=== PATIENT | male | born 1945 | race Caucasian/White ===

== ENCOUNTER → 2019-10-05 11:48 | Outpatient (CLI) | payer MEDICARE, OTHER, SELFPAY ==
--- NOTE | 2019-10-05 | DI.US.S_ITS ---
PROCEDURE: US ABD AORTA ANEURYSM SCREEN INDICATIONS: SCREENING TECHNIQUE: Real time scanning was performed of the aorta and iliac arteries, with image documentation. COMPARISON: None. FINDINGS: Aorta: Proximal aortic was obscured by bowel gas. Mid-aorta measures 1.9 cm. Distal aortic diameter is 1.8 cm. Iliac arteries: Right common iliac artery measures 1.0 cm. Left common iliac artery measures 1.1 cm. IMPRESSION: No evidence of abdominal aortic aneurysm. Dictated by: Ty Wiseman M.D. on 10/06/2019 at 8:43 Approved by: Ty Wiseman M.D. on 10/06/2019 at 8:48
== END ==
PROVIDERS: Family Provider Family Medicine; PCP Family Medicine; Visit Provider Nurse Practitioner Family
DX: Z13.6 Encounter for screening for cardiovascular disorders (principal)
CPT/HCPCS: 76706

== ENCOUNTER → 2024-03-06 13:40 | Outpatient (CLI) | payer MEDICARE, OTHER, SELFPAY ==
[2024-03-06 14:52] LABS: Add Manual Diff / Slide Review NO; Basophils Absolute Auto 100 /uL (0-100); Basophils Percent Auto 1.2 % (0-2); Eosinophils Absolute Auto 300 /uL (0-450); Eosinophils Percent Auto 2.9 % (2-4); Hematocrit 39.6 % (41-53); Hemoglobin 13.3 g/dL (13.5-17.5); Lymphocytes Absolute Auto 2000 /uL (1100-4500); Lymphocytes Percent Auto 20.1 % (25-40); Mean Corpuscular HGB Conc 33.5 % (30-36); Mean Corpuscular Volume 95.3 fL (80-100); Monocytes Absolute Auto 1000 /uL (0-900); Monocytes Percent Auto 9.4 % (3-14); Neutrophils Absolute Auto 6700 /uL (1500-7000); Neutrophils Percent Auto 66.4 % (50-75); Platelet Count 211 X10^3/uL (150-400); Red Blood Cell Count 4.15 X10^6/uL (4.5-5.9); Red Cell Distribution Width 15.8 % (11.6-14.8); White Blood Cell Count 10.1 X10^3/uL (4.5-11.0)
[2024-03-06 15:18] LABS: Erythrocyte Sedimentation Rate 44 MM/HR (0-15)
[2024-03-06 15:27] LABS: Alanine Aminotransferase 15 IU/L (<50); Albumin 3.8 g/dL (3.5-5.0); Albumin Globulin Ratio 1.4 (1.0-2.8); Alkaline Phosphatase 126 U/L (38-126); Aspartate Aminotransferase 19 IU/L (17-59); Bilirubin Total 0.4 mg/dL (0.2-1.3); Blood Urea Nitrogen 25 mg/dL (9-20); Calcium 9.7 mg/dL (8.4-10.2); Carbon Dioxide 27 mmol/L (22-32); Chloride 103 mmol/L (98-107); Estimated Glomerular Filt Rate > 60 mL/min (>60); Globulin 2.8 g/dL (1.7-4.1); Glucose 159 mg/dL (80-110); HEMOLYSIS < 15 (0-50); Potassium 5.3 mmol/L (3.4-5.1); Sodium 137 mmol/L (137-145); Total Protein 6.6 g/dL (6.3-8.2); Uric Acid 3.7 mg/dL (3.5-8.5)
== END ==
LOC: LAB 13:43
PROVIDERS: Family Provider Family Medicine; PCP Family Medicine; Referring Provider Orthopaedic Surgery Adult Reconstructive Orthopaedic Surgery; Visit Provider Orthopaedic Surgery Adult Reconstructive Orthopaedic Surgery
DX: M1A.9XX1 Chronic gout, unspecified, with tophus (tophi) (principal); R70.0 Elevated erythrocyte sedimentation rate; R79.82 Elevated C-reactive protein (CRP)
CPT/HCPCS: 36415; 80053; 82495; 83018; 84550; 85025; 85651; 86140

== ENCOUNTER → 2024-03-23 09:04 | Outpatient (CLI) | payer MEDICARE, OTHER, SELFPAY ==
[2024-03-23 10:17] LABS: Add Manual Diff / Slide Review NO; Basophils Absolute Auto 100 /uL (0-100); Basophils Percent Auto 1.1 % (0-2); Eosinophils Absolute Auto 300 /uL (0-450); Eosinophils Percent Auto 3.8 % (2-4); Hematocrit 41.9 % (41-53); Hemoglobin 13.7 g/dL (13.5-17.5); Lymphocytes Absolute Auto 1200 /uL (1100-4500); Lymphocytes Percent Auto 14.6 % (25-40); Mean Corpuscular HGB Conc 32.8 % (30-36); Mean Corpuscular Hemoglobin 31.2 PG (26-34); Mean Corpuscular Volume 95.2 fL (80-100); Monocytes Absolute Auto 600 /uL (0-900); Monocytes Percent Auto 7.6 % (3-14); Neutrophils Absolute Auto 5900 /uL (1500-7000); Neutrophils Percent Auto 72.9 % (50-75); Platelet Count 191 X10^3/uL (150-400); White Blood Cell Count 8.1 X10^3/uL (4.5-11.0)
[2024-03-23 10:31] LABS: Hemoglobin A1C% w Est Avg Glu 8.1 % (4.0-6.0)
[2024-03-23 10:38] LABS: Albumin 4.3 g/dL (3.5-5.0); Calcium 9.9 mg/dL (8.4-10.2); Carbon Dioxide 24 mmol/L (22-32); Chloride 103 mmol/L (98-107); Estimated Glomerular Filt Rate > 60 mL/min (>60); Glucose 169 mg/dL (80-110); HEMOLYSIS < 15 (0-50); Potassium 4.7 mmol/L (3.4-5.1); Sodium 135 mmol/L (137-145)
[2024-03-23 10:41] LABS: BUN Creatinine Ratio 32.6 (6-22); Blood Urea Nitrogen 29 mg/dL (9-20)
[2024-03-23 10:46] LABS: Prealbumin 22.9 mg/dL (17.6-36.0)
[2024-03-23 10:54] LABS: Vitamin D 25 Hydroxy (D3) 49.3 ng/mL (30.0-100.0)
== END ==
LOC: LAB 09:05
PROVIDERS: Family Provider Internal Medicine; PCP Internal Medicine; Referring Provider Orthopaedic Surgery Adult Reconstructive Orthopaedic Surgery; Visit Provider Orthopaedic Surgery Adult Reconstructive Orthopaedic Surgery
DX: Z01.818 Encounter for other preprocedural examination (principal); R73.9 Hyperglycemia, unspecified; E55.9 Vitamin D deficiency, unspecified; Z01.812 Encounter for preprocedural laboratory examination; R77.0 Abnormality of albumin
CPT/HCPCS: 36415; 80048; 82040; 82306; 83036; 84134; 85025; 93005

== ENCOUNTER → 2024-04-06 13:15 | Outpatient (CLI) | payer MEDICARE, OTHER, SELFPAY ==
--- NOTE | 2024-04-06 | DI.RAD.S_ITS ---
PROCEDURE: XR CHEST 2V INDICATIONS: Encounter for other preprocedural examination TECHNIQUE: 2 views of the chest were acquired. COMPARISON: None. FINDINGS: Surgical changes and devices: None. Lungs and pleura: Lungs are clear. No pleural effusions or pneumothorax. Prominent left nipple shadow. Mediastinum: Mediastinal contours are normal. Heart size is normal. Bones and chest wall: No suspicious bony abnormalities. Soft tissues appear unremarkable. Multilevel degenerative disc disease, with opposing endplate sclerosis of the mid to lower thoracic spine. IMPRESSION: No acute cardiopulmonary abnormality is seen. Dictated by: Levy Carolina M.D. on 04/06/2024 at 15:20 Approved by: Levy Carolina M.D. on 04/06/2024 at 15:21
--- NOTE | 2024-04-06 | DI.RAD.S_ITS ---
PROCEDURE: XR DEXA AXIAL SKELETON INDICATIONS: BONE QUALITY TO PREPARE FOR SURGERY COMPARISON: None. FINDINGS: Lumbar Spine: Bone mineral density 1.439 g/cm2, T score 3.9. Right Hip: Bone mineral density 1.041 g/cm2, T score 0.8. Right Femoral Neck: Bone mineral density 0.901 g/cm2, T score 0.5. Fracture Risk Calculation (when applicable): FRAX not provided due to bone mineral density within normal limits. (T score greater or equal to -1.0 to: NORMAL) (T score from -1.1 to -2.4: OSTEOPENIA) (T score less than or equal to -2.5: OSTEOPOROSIS) IMPRESSION: Bone mineral density is within normal limits. Follow-up guidelines as follows: Osteoporosis: Consider a repeat DEXA and Vertebral Fracture Assessment (VFA) exam in 2 years or sooner if medically necessary, to reassess this patient's status. Osteopenia: Consider a repeat DEXA in 2-3 years to reassess this patient's status, or if there is a new clinical indication. Normal: Consider a repeat DEXA in 5 years or sooner, or if there is a new clinical indication. Dictated by: Jaspal Hwang M.D. on 04/06/2024 at 15:22 Approved by: Jaspal Hwang M.D. on 04/06/2024 at 15:24
== END ==
PROVIDERS: Family Provider Internal Medicine; PCP Internal Medicine; Referring Provider Orthopaedic Surgery Adult Reconstructive Orthopaedic Surgery; Visit Provider Orthopaedic Surgery Adult Reconstructive Orthopaedic Surgery
DX: Z01.818 Encounter for other preprocedural examination (principal); Z01.810 Encounter for preprocedural cardiovascular examination; M51.34 Other intervertebral disc degeneration, thoracic region; M81.0 Age-related osteoporosis without current pathological fracture
CPT/HCPCS: 71046; 77080

== ENCOUNTER 2024-06-09 06:16 | Day surgery (SDC) | payer MEDICARE, OTHER, SELFPAY ==
[2024-05-31 12:34] VITALS: BMI 40.7
[2024-06-09] VITALS (13 sets, daily range): BP systolic 96–138; BP diastolic 57–84; PULSE 66–90; RESP 12–18; TEMP 36.1–36.8; O2SAT 95–99; BMI 40.7; BMI 44.1
--- NOTE | 2024-06-09 06:00 | DI.RAD.S_ITS ---
PROCEDURE: XR HIP W PEL IF DONE RT 2V INDICATIONS: SHELBY inner op shot TECHNIQUE: AP pelvis with lateral view(s) of the right hip(s). COMPARISON: [facility], CR, XR PELVIS 1 OR 2 VIEWS, 06/05/2024, 11:13. [facility], CR, XR HIP W PEL IF DONE RT 2V, 06/09/2024, 10:39. FINDINGS: Intraoperative images demonstrate bilateral hip arthroplasties. Right hip arthroplasty is new. Good anatomic alignment. Visualized portions of the hardware appear intact. IMPRESSION: Intraoperative placement of new right hip arthroplasty. Prior left hip arthroplasty is noted. Dictated by: Lucia Cartagena M.D. on 06/09/2024 at 12:23 Approved by: Lucia Cartagena M.D. on 06/09/2024 at 12:24
[2024-06-09] MEDS: ACETAMINOPHEN 325 MG TABLET 975 MG PO (07:05)
[2024-06-09] MEDS: MELOXICAM 7.5 MG TABLET 15 MG PO (07:06)
[2024-06-09] MEDS: LACTATED RINGERS 1,000 ML 42 ML IV ×2 (07:07→09:12)
--- NOTE | 2024-06-09 07:41 | PM.PREOP ---
Pre-operative Note Interval Note History & Physical reviewed/Exam performed by Physician: Yes Changes to H&P: No
[2024-06-09] MEDS: CEFAZOLIN 2 GM/100 ML PREMIX 100 ML IV (07:56)
[2024-06-09] MEDS: TRANEXAMIC ACID 1,000 MG VIAL 1000 MG INJ ×2 (08:03→10:10)
--- NOTE | 2024-06-09 08:24 | SUR.OPER ---
Patient supine on padded [place] table, both arms on padded arm board at <90, both legs secured in padded traction boots and positioned per surgeon, left leg stabilized with padded knee grimes, padded post at patient's groin, pressure points checked and padded.
[2024-06-09] MEDS: ROPIVACAINE/EPI/CLONIDINE/KET 50 ML SYRINGE INJ (08:30)
--- NOTE | 2024-06-09 10:29 | P.OP_ITS ---
Operative Date/Time/Diagnoses Date of procedure: 06/09/24 Pre-op diagnosis: Right hip osteoarthritis Post-op diagnosis: same Procedure & Clinicians Procedure: Right total hip arthroplasty (46328) Same procedure as scheduled: Yes Surgeon: Pop Anderson Mint Machine Operator: Jaky Chaudhry Anesthesia Type: General and Local Operative Notes Estimated Blood Loss (mL): 450 Procedure in detail: Right Uncemented Direct Anterior Depuy Total Hip Arthroplasty: Implants: * [place] Gription size 54 cup? * Actis femoral stem size 8 high offset? * 36 mm +5 ceramic femoral head? Procedure Summary: This 78-year-old male presented to my clinic with multiple arthroplasty related concerns. 1) He had the arthritic right hip which I replaced today. 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 Due to concerns for possible infection in the joint I aspirated it and sent it for Synovasure which was negative. 3) He has a modular neck left total hip, and I obtained metal ion levels which were elevated. We discussed this in detail and he was less symptomatic there than he was on either his right hip or his right knee and we are therefore going to continue monitoring that with serial laboratory panels. From a medical perspective there were multiple medical considerations 1) The most noteworthy concern was his history of a pulmonary embolism. He is maintained on Pradaxa and had a Lovenox bridge prior to surgery today. General anesthesia was utilized rather than spinal anesthesia because of his bleeding risk. We will use Pradaxa postoperatively. 2) He is diabetic. A hemoglobin A1c was checked which was less than 7.5%, we will maintain him on sliding scale insulin while he is in the hospital. 3) He has a BMI of 40. He had a large overlying pannus which was taped out of the way during the surgery today. I made a slightly more distal incision to avoid crossing his groin crease. Because of his BMI and the plan for systemic anticoagulation postoperatively we used a cristina incisional wound VAC 4) After my initial visit with him, after I had booked him for surgery, he was started on oral morphine by an outside provider. I was unaware of this until my preoperative visit with him few days before surgery. I did not cancel the surgery solely because of the opiates but did career counselor him regarding the li kelihood of elevated pain postoperatively and will continue him on his baseline dosage through the perioperative 7 days with the intention of aggressively weaning him off of them As it relates to intraoperative findings during today's procedure, he has the prior left total hip which was slightly long relative to the operative side. I had initially templated for smaller components then were eventually used but noted during the removal of the femoral head that the femoral head was only 2 mm smaller than my templated cup, which therefore lead to me to believe that the magnification on the preoperative templating radiograph was undersized. I initially trialed with a 7 standard and +1.5 head and had instability with this. I therefore upsized to a 7 high with a +5 head. This was more stable but required more internal rotation than is typical for me to be able to reduce it. I thought that this could be an indication of relative stem retroversion. During the initial performance of his neck cut he had a large osteophyte which had obscured the junction between his femoral neck in his greater trochanter and I had made what would later turned out to be a relatively high neck cut on the lateral side. Given my presumption that I had slightly retroverted his stem based on the excessive internal rotation necessary to reduce his hip I therefore removed some lateral bone to allow a more anteverted position and upsized to a size 8 stem. When I trialed following this up sizing I found more appropriate parameters. It was slightly long relative to the contralateral side however this was not a dramatic amount when measuring with a long metal bar across the transitional line, the other side had previously been replaced, and the hip would dislocate when I used a +1.5 head. I therefore implanted those final components Procedure in Detail: This patient was seen preoperatively and evaluated for hip pain which was refractory to numerous nonoperative treatment modalities. Their hip pain correlated with radiographic changes demonstrating significant degeneration in the hip joint. The risks and benefits of continued nonoperative management versus operative management were discussed at length and all of the patient?s questions were answered. Additional educational materials providing further details beyond our discussion in clinic were provided via a publicly available patient education video which included the incidence of medical complications associated with total hip arthroplasty, reasons for revision following total hip arthroplasty, and patient satisfaction rates following total hip arthroplasty. That video can be accessed at [email or web address] . With this understanding of the risks inherent to the procedure, the patient elected to move forward with operative management. Following preoperative optimization, the patient was scheduled for surgery. The patient was met in the preoperative holding area the day of the procedure and all questions were answered. The patient?s nares were swabbed with betadine in order to decolonize them from MRSA. Informed consent was signed and the right limb was marked with indelible ink.? The patient was brought back to the operating room where anesthesia was induced. The patient was transferred to the [place] table and all bony prominences were padded. The operative site was prepped and draped in the usual sterile fashion. Prior to incision, tranexamic acid and cefazolin were administered. Operative te mplating images were displayed demonstrating the anticipated implant sizes and correct operative extremity. A timeout procedure was performed verifying the patient?s identity, medical comorbidities, allergies, relevant medications, anesthesia type and the surgical plan. All present were in agreement. The assistance of a physician events administrative assistant was required for positioning, room setup, soft tissue retraction and wound closure. Without this assistance, the procedure would have been significantly more challenging and time consuming.?? A direct anterior approach to the hip was utilized. This was performed with a longitudinal incision through a Heuter interval. The incision was planned 2 cm distal and 2 cm lateral to the ASIS extending towards the lateral patella, in line with the muscle body of the TFL. Following incision, the subcutaneous tissue was dissected while taking care to avoid injury to the lateral femoral cutaneous nerve. The fascia overlying the TFL was identified by dissecting off the overlying fat and identifying perforating vessels to the TFL. The TFL fascia was incised and dissected away from the medial border of the TFL. A cobra retractor was placed over the superior femoral neck between the abductors and the hip capsule and used to reflect the TFL laterally. A Winn self-retainer was then placed in the distal aspect of the wound between the TFL and the rectus femoris. This was tensioned to open up the direct anterior interval and the lateral circumflex vessels were identified and coagulated using electrocautery. The floor of the TFL fascia was incised, exposing the pericapsular fat overlying the hip capsule. A second cobra retractor was placed on the inferior femoral neck. A double-bent soft tissue retractor was placed on the anterior wall of the acetabulum and used to tension the reflected head of rectus femoris, which was then released in order to limit soft tissue tension. A capsulotomy was made in the midline of the anterior hip capsule in line with the femoral neck ending at the vastus tubercle. The double-bent retractor was removed in order to limit the amount of time that a soft tissue retractor remained on the anterior wall and protect the femoral nerve. Tag stitches were placed in the superior and inferior leaflets of the hip capsule. An Bernard soft tissue retractor was introduced over the tag stitches and tensioned in the interval between the rectus femoris and the TFL in order to retract and protect those muscles. The cobra retractors were replaced intracapsularly, with one over the superior neck in the pocket created by the base of the greater trochanter and the other on the femoral head. The capsulotomy was extended laterally to the base of the greater trochanter and medially to the lesser trochanter. This required externally rotating the hip. Once the lesser trochanter had been identified, a neck cut was planned according to measurements from preoperative templating. A ruler was cut at the length measured between the superior aspect of the lesser trochanter and the collar of the prosthesis. This line was extended towards the inferior aspect of the lateral cobra retractor to plan a cut which would leave minimal residual femoral neck laterally. The neck was cut at 60 degrees of external rotation along that line. A second cut was performed to remove a large napkin ring and facilitate head extraction. The napkin ring cut and femoral head were removed.?? A broad anterior wall retractor was placed between the labrum and the anterior capsule so that the anterior capsule would prevent capturing and pinching the f emoral nerve anteriorly. An additional retractor was placed on the posterior wall. External rotation and traction were applied through the [place] table so that the cut surface of the femoral neck would not restrict access to the acetabulum. The labrum was excised sharply and the pulvinar was excised with electrocautery to limit bleeding from branches of the obturator artery. Acetabular reamers were selected based on preoperative templating and measurements of the excised femoral head. These were introduced into the acetabulum. Fluoroscopy was utilized to replicate a standing AP pelvis radiograph by centering over the pelvis, rotating until there was appropriate symmetry between the obturator foramen, and introducing caudal tilt to match the position of the pubic symphysis relative to the sacrococcygeal junction according to the patient?s anatomy. Fluoroscopy was utilized to ensure appropriate reaming depth. Once satisfied with the reaming depth corresponding to the preoperative template and the pinch fit between the columns, an appropriate sized acetabular cup was selected which would provide 1 mm of press-fit. This cup was introduced and manipulated until appropriate abduction and anteversion angles were obtained with careful attention to appropriate abduction and anteversion angles as evaluated by the position of the cup relative to the anterior and posterior leiva of the acetabulum and the AP fluoroscopy which recreated the patient?s standing radiograph. The cup was impacted into place. Peripheral osteophytes were removed. The acetabular liner was then placed with care to ensure locking of the locking mechanism.? Attention was then turned to the femur. All retractors were removed, traction was released, a retractor was placed in the interval between the hip capsule and the gluteus minimus, and the hip was externally rotated to 90 degrees. Traction was applied through the [place] table to tension the lateral capsule and this was released using electrocautery. Traction was released and a [place] hook was placed posteriorly around the proximal femur at the level of the vastus ridge. The table height was lowered in order to restrict the tension on the anterior structures during hip hyperextension to limit the risk of femoral nerve palsy. With traction off and the hip at 90 degrees of external rotation, the hip was hyperextended and adducted while manually elevating the femur away from the acetabulum with the [place] hook to ensure it would not be caught behind the greater trochanter. An asymmetric retractor was placed over the calcar and a broad double-pronged retractor was placed over the greater trochanter. The tag stitch capturing the lateral leaflet of the capsule was moved to the medial side, leaving the conjoined and piriformis tendons isolated in the face of the greater trochanter. The hip was externally rotated and elevated. A release of the conjoined tendon was not necessary in order to obtain adequate exposure for broaching. The canal was opened with an opening broach and a rasp was used to remove cancellous bone. A rongeur was used to remove the residual lateral bone at the base of the greater trochanter to avoid placing the stem in varus. The femur was then broached to the appropriate sized stem yielding good rotational fit and fill of the canal as well as appropriate version of the stem trial. Neck and head trials were placed, all retractors were removed and the hip was returned to neutral abduction and extension. I then reduced the hip. Initial trialing was performed with a size 7 broach, a standard offset neck and a +1.5 head. I initially manually externally rotated the hip and found instability. I therefore transitioned to a high offset neck and a +5 head after returning to the broaching position temporarily. I returned to neutral hip extension and reduced the hip. I manually externally rotated it and found that it would not dislocate with 120? of external rotation although I did note that excessive internal rotation was required to achieve the reduction. I then locked the hip in 45 degrees of external rotation and dropped it to the floor with traction off which demonstrated no instability. An AP pelvis fluoroscopic image matching the preoperative standing radiograph with both lesser trochanters visible and both hips in 40 degrees of external rotation demonstrated grossly appropriate leg length and increased offset compared to the other side. AP and lateral hip fluoroscopic images were obtained to evaluate the broach size which demonstrated that the stem appeared to be appropriately sized. The hip was dislocated and I returned to the broaching position. Based on my evaluation during initial trialing I planned to try to upsize to a size 8 stem. I felt that it was likely with my long neck cut I had performed earlier on the lateral side I had some residual bone at the base of the neck with the junction with the greater trochanter which was forcing my stem into retroversion. I therefore removed the broach and rongeur away the bone to attempt to allow myself to upsized to a size 8 broach. The size 7 stem had good rotational stability in the position that I had trialed it in and appeared to have good fill radiographically so I used a size 5 broach temporarily as a rasp to remove some lateral bone to allow the size 8 broach to get down to the point at which I had previously calcar planed with the size 7 broach. I was eventually able to broach down to the same point that the size 7 broach had rested at with the size 8 broach. I placed the high offset neck and a +1.5 head and trialed and noted instability with external rotation so I upsized to a size 5 head. This resolved the instability. The operative side was slightly long and had slightly increased offset relative to the contralateral side however that side had been previously replaced and therefore may not necessarily be a reflexion of his [place] anatomy. I could not make the hip any shorter because it had instability with a +1.5 head. I therefore returned to the broaching position. The definitive stem was placed and the trunnion was cleaned and dried. I placed a ceramic head onto the trunnion and impacted it into place on the Bojorquez taper.?? All retractors were removed and the hip was reduced. A dilute mixture of betadine and peroxide was used to bathe the soft tissues during final fluoroscopic assessment. Appropriate component positioning was confirmed on an AP pelvis radiograph with the operative and nonoperative legs in 40 degrees of external rotation, evaluating leg length and offset. Appropriate stem fill was evaluated on AP and lateral hip radiographs. No fractures were identified on these radiographs. There was no hip instability with 120? external rotation as well as a 45 degree drop test. The hip was copiously irrigated with pulse lavage. The capsule was closed with absorbable interrupted suture. The TFL fascia was closed with barbed suture while carefully protecting the lateral femoral cutaneous nerve from entrapment. A mixture of Ropivacaine, Epinephrine, Clonidine and Toradol was infiltrated throughout the soft tissues. The skin was closed with 2-0 and 3-0 sutures. Surgical glue was applied and a soft dressing was placed.??The sponge, instrument and needle counts were reported as being correct at the end of the case.??No obvious complications occurred. The patient was transferred from the [place] table back to a stretcher. The patient emerged from anesthesia without difficulty and was taken to the PACU in a stable condition.? Plan for aftercare: * Anterior hip precautions * Weightbearing as tolerated * Pradaxa for DVT prophylaxis to be restarted tomorrow morning at 24 hours postop * Sliding scale insulin while in the hospital * CBC to be checked in the morning * Baseline opiate dosages. We will attempt to aggressively taper him down postoperatively * Anticipate discharge home tomorrow * Change into normal clothes upon arrival on the hospital floor * Mobilize in the halls as much as is logistically possible. If physical therapy is unavailable for mobilization, then patient should mobilize with nursing staff * Multimodal pain regimen with no IV opioids ordered * Apply ice machine to operative hip. Ensure that sufficient ice is in the chamber for the pad to remain cold * Follow up at [facility] in 2 weeks * Detailed postoperative instructions available at [email or web address]
--- NOTE | 2024-06-09 10:37 | DI.RAD.S_ITS ---
PROCEDURE: XR HIP W PEL IF DONE RT 2V INDICATIONS: Right hip replacement TECHNIQUE: 2 view(s) of the hip acquired. COMPARISON: [facility], CR, XR PELVIS 1 OR 2 VIEWS, 06/05/2024, 11:13. [facility], CR, XR HIP W PEL IF DONE RT 2V, 06/09/2024, 8:57. FINDINGS: Bones: Patient is status post right hip arthroplasty, with hardware components in expected positions. The hip joint appears congruent. The visualized bony structures appear intact. Soft tissues: Overlying postoperative changes are noted. No suspicious soft tissue densities. IMPRESSION: Expected post-operative appearance of a hip arthroplasty. Dictated by: Alexandrea Reyes M.D. on 06/09/2024 at 12:03 Approved by: Alexandrea Reyes M.D. on 06/09/2024 at 12:04
[2024-06-09] MEDS: MORPHINE 10 MG/ML INJ IV ×5 (10:40→11:01)
[2024-06-09] MEDS: OXYCODONE IR 5 MG TABLET PO ×2 (10:56→11:26)
[2024-06-09] MEDS: HYDROMORPHONE 1 MG INJ IV (11:13)
[2024-06-09] MEDS: hydrOXYzine 50 MG/ML INJ 25 MG IM (11:24)
[2024-06-09] MEDS: IBUPROFEN 600 MG TABLET PO ×3 (12:14→23:17)
[2024-06-09] MEDS: LACTATED RINGERS 1,000 ML 100 ML IV ×2 (12:14→22:39)
[2024-06-09] MEDS: INSULIN LISPRO 100 UNIT/ML 3ML VIAL SUBCUT ×3 (12:22→21:01)
[2024-06-09 15:01] LABS: MRSA (Nasal) PCR NOT DETECTED (Not Detect)
[2024-06-09] MEDS: PREGABALIN 75 MG CAPSULE 150 MG PO ×2 (15:19→20:39)
[2024-06-09] MEDS: MORPHINE IR 15 MG TABLET PO ×2 (15:19→20:40)
[2024-06-09] MEDS: CEFAZOLIN VIAL 3 GM in SODIUM CHLORIDE 0.9% 100 ML IV ×2 (15:54→23:37)
--- NOTE | 2024-06-09 16:30 | PT.IIE ---
Current Diagnoses Unilateral primary osteoarthritis, right hip (06/09/24) Surgery Performed Operation Date: 06/09/24 07:45 Actual Procedures p Total Hip Arthroplasty/Anterior Approach(Right) - Pop Anderson MD Surgical History (Last Updated 05/31/24 @ 13:20 by Gabbie Wylie, RN) History of hip replacement History of knee replacement History of knee replacement History of left ankle joint replacement History of right ankle joint replacement History of vasectomy Hx of bilateral cataract extraction Medical History (Last Updated 05/31/24 @ 13:25 by Gabbie Wylie RN) Acute cor pulmonale (11/2023) Easy bruisability Gout Hearing deficit Neuropathy AYO on CPAP Osteoarthritis Pulmonary embolism (11/2023) Physical Therapy Inpatient Evaluation/Re-Eval M1 PT/OT-IP Prior Functional Status Start: 06/09/24 18:12 Freq: NEEDED Status: Active Protocol: Document 06/09/24 16:30 AB (Rec: 06/09/24 18:24 AB [id number]) Medical Review Prior Functional Status Medical History Reviewed Yes Communication able to make needs known Mobility and Gait pt stated that he is modified independent with all mobilities and ambulation with 4WW Social History Household Members spouse Living Arrangements House Number of Floors (Floors) One Floor Number of Stairs To Enter/Railing? 2 steps bilateral wide rails and can only hold on to one rail at a time Home Environment High Toilet,Walk in Shower Home Equipment Front Wheel Walker,Four Wheel Walker,Raised Toilet Seat Without Armrests,Shower Seat with Backrest,Hand Held Shower ,Grab Bars Near Toilet,Grab Bars In Shower M2 PT-IP Current Condition Start: 06/09/24 18:12 Freq: NEEDED Status: Active Protocol: Document 06/09/24 16:30 AB (Rec: 06/09/24 18:24 AB [id number]) Physical Therapy Current Condition Current Condition Evaluation Date 06/09/24 Treatment Diagnosis s/p R SHELBY anterior; difficulty in walking Onset Date 06/09/24 M3 PT-IP Subjective Start: 06/09/24 18:12 Freq: NEEDED Status: Active Protocol: Document 06/09/24 16:30 AB (Rec: 06/09/24 18:24 AB [id number]) Subjective Physical Therapy Visit Type Type Initial Evaluation Visit Start Time 16:30 Visit Stop Time 17:20 Number of SHOP COORDINATOR Visits 0 Physical Therapy Visit Comments Patient Comments agreeable to do PT Therapy Pain Assessment Pain When Pain Assessed At Rest Pain Present Pain Present Pain Reported Location right hip Intensity 2 Scale Used increases to 5/10 with movement Pain Management Techniques Apply Cold,Modification of Treatment,Re-positioning, Timing of Activity with Medications M4 PT-IP Mobility and Gait Start: 06/09/24 18:12 Freq: NEEDED Status: Active Protocol: Document 06/09/24 16:30 AB (Rec: 06/09/24 18:24 AB [id number]) PT-Bed Mobility Assessment Rolling Type of Rolling Log Rolling Level of Assist Minimal Assistance Supine to Sit Supine to Sit Minimal Assistance PT-Transfer Assessment Sit to and From Stand Sit to and from Stand Contact Guard Assistance,1 Person Assistance,Use of Upper Extremities Equipment Transfer Assistive Device Gait Belt,Front Wheeled Walker Orthotic/Prosthetic Devices or Brace: No Transfers Transfer Destination Chair Transfer Technique ambulated Transfer Ability Level of Assist Contact Guard Assistance,1 Person Assistance,Use of Upper Extremities Comments Mobility Comments pt supine in bed and agreeable to do PT. obtained PLOF and home set up from pt. post-op folder provided and reviewed contents. educated pt regarding anterior hip precautions for RLE. pt able to reall 2/2 precautions after education. BP in supine: 104 /55 pt stated that he usually gets up from the bed lifting his trunk up but usually has mid section pain when he does that . informed pt regarding doing a log roll to decrease back/ mid trunk pain. pt completed min A and max cues and stated that it was easier than sitting straight up from supine. pt able to sit on EOB without c/o dizziness. BP in sittin/56. completed sit to stand CGA and ambulated in room using FWW ~ 15 ft CGA and cues for hip precautions. pt required occasional cues for LE placement for safety / hip precautions. pt agreed to stay up on the chair. positioned pt on the chair. call light and table placed within reach. Left pt with nurse. caregiver training set up for tomorrow at 9 am. pt stated that he will inform spouse when she comes to see him this afternoon. Gait Assessment Gait Gait Assistance Required: Contact Guard Assist,1 Person Assist Distance (Feet) 15 Able to Maintain Weight Bearing Status Yes During Gait Assistive Devices Assistive Device Gait Belt,Front Wheeled Walker Orthotic/Prosthetic Devices or Brace: No Gait Deviations General Gait Pattern Decreased Feet Clearance Factors Limiting Gait Function Factors Limiting Gait Function Decreased Activity Tolerance, Decreased Strength,Limited Range of Motion,Pain,Poor Balance PT-Balance Assessment Sitting Balance and Reactions Static Sitting Balance Ability Normal Dynamic Sitting Balance Ability Good Standing Balance and Reactions Static Standing Balance Ability Fair Dynamic Standing Balance Ability Fair Device Used FWW M5 PT-IP Objective Assessments Start: 06/09/24 18:12 Freq: NEEDED Status: Active Protocol: Document 06/09/24 16:30 AB (Rec: 06/09/24 18:24 AB [id number]) Orientation Orientation/Cognition Level of Alertness Alert Orientation Name,Place,Situation Language Function Ability No Deficits Noted Safety Awareness Decreased Safety Awareness Memory Description No Deficits Noted Gross Range of Motion Lower Extremity ROM Assessment Within Functional Limits Strength Lower Extremity Strength Assessment Right Impaired Hip 3-/5 Knee 3+/5 Sensation Assessment Sensation Gross Sensation WNL Muscle Tone Muscle Tone WNL Yes M6 PT-IP Treatment Start: 06/09/24 18:12 Freq: NEEDED Status: Active Protocol: Document 06/09/24 16:30 AB (Rec: 06/09/24 18:24 AB [id number]) Physical Therapy Treatment Exercises Exercises Heel Slides Education Education Provided Precautions,Weight Bearing Status,Post-Op Packet,Safety M7 PT-IP Assessment and Plan Start: 06/09/24 18:12 Freq: NEEDED Status: Active Protocol: Document 06/09/24 16:30 AB (Rec: 06/09/24 18:24 AB [id number]) PT Summary Assessment and Plan Potential Rehabilitation Potential Fair Status of Condition at Evaluation Evolving Summary Impairments Pain,ROM,Strength,Balance, Coordination,Sensation,Tone, Cognition,Bed Mobility, Transfers,Gait,Activity Tolerance Assessment Summary pt is a 78 y/o M s/p R SHELBY anterior approach POD 0. pt has R hip anterior precautions and is WBAT. pt requiring CGA with mobility using FWW and will likely progress in mobility during hospital stay. caregiver training set up for tomorrow at ~ 9 am and pt will also complete stair climbing prior to d/c since pt has 2 steps to enter the house. will continue to assess . Goals Bed Mobility Goal Independent Transfer Goal Independent,Front Wheeled Walker,Four Wheeled Walker Gait Goal Independent,Front Wheel Walker ,Four Wheel Walker Gait Distance 200 Other Goals up/down 2 steps 1 rail SBA Days to Meet Goals 5 Frequency of Treatment Frequency Of Treatment Twice a Day Treatment Plan Physical Therapy Treatment Plan Bed Mobility Training,Transfer Training,Gait Training, Therapeutic Exercise,Balance Retraining,Post Op Education, Discharge Planning,Hot or Cold Pack,Neuromuscular Re-ed, Coordination Retraining,Manual Therapy Precautions Anterior Hip Precautions No Hip Extension,No Hip External Rotation Weight Bearing Status Weight Bearing Status Weight Bear as Tolerated Allowed Weight Bearing Amount (enter % RLE WBAT or #) (%) Recommendations To Nursing Amount of Assist Needed 1 Person Assist Discharge Recommendations PT Discharge Recommendations Home with Assistance, Outpatient PT Transportation Needs at Discharge Private Vehicle
[2024-06-09] MEDS: ACETAMINOPHEN 325 MG TABLET 650 MG PO ×2 (17:05→23:18)
[2024-06-09] MEDS: allopurinoL 100 MG TABLET 600 MG PO (17:06)
[2024-06-09] MEDS: COLCHICINE 0.6 MG TABLET PO (20:39)
[2024-06-09] MEDS: DABIGATRAN 75 MG CAPSULE 150 MG PO (20:39)
[2024-06-09] MEDS: METFORMIN HCL 500 MG TABLET 1000 MG PO (20:39)
[2024-06-09] MEDS: DOCUSATE 100 MG CAPSULE PO (20:39)
[2024-06-09] MEDS: SODIUM CHLORIDE 0.9% FLUSH 10 ML IV (21:05)
--- NOTE | 2024-06-10 00:42 | PC.NURSE ---
Yarn Wrapper Note-Patient was unable to void during first few hours of shift, bladder scanned once for 335ml, attempting more to use urinal, bladder scanned 2nd time for >700ml. I/O catheter done requiring [place] d/t resistance, drained 975ml clear placido urine. Patient tolerated fair. Denies pain to right hip.
[2024-06-10] MEDS: ACETAMINOPHEN 325 MG TABLET 650 MG PO (05:50)
[2024-06-10] MEDS: IBUPROFEN 600 MG TABLET PO (05:50)
[2024-06-10 07:55] VITALS: BP 105/65; PULSE 90; RESP 17; TEMP 36.4; O2SAT 98
[2024-06-10] MEDS: INSULIN LISPRO 100 UNIT/ML 3ML VIAL SUBCUT (08:11)
[2024-06-10 08:14] LABS: Hematocrit 31.8 % (41-53); Hemoglobin 10.4 g/dL (13.5-17.5)
[2024-06-10] MEDS: METOPROLOL ER 25 MG TABLET PO (08:24)
[2024-06-10] MEDS: DABIGATRAN 75 MG CAPSULE 150 MG PO (08:24)
[2024-06-10] MEDS: COLCHICINE 0.6 MG TABLET PO (08:24)
[2024-06-10] MEDS: DOCUSATE 100 MG CAPSULE PO (08:24)
[2024-06-10] MEDS: DULOXETINE 30 MG CAPSULE 60 MG PO (08:24)
[2024-06-10] MEDS: MORPHINE IR 15 MG TABLET PO (08:24)
[2024-06-10] MEDS: METFORMIN HCL 500 MG TABLET 1000 MG PO (08:24)
[2024-06-10] MEDS: PREGABALIN 75 MG CAPSULE 150 MG PO (09:31)
[2024-06-10] MEDS: SODIUM CHLORIDE 0.9% FLUSH 10 ML IV (09:31)
--- NOTE | 2024-06-10 09:36 | CM.DANOTE ---
Initial DCP Assessment Note Pt is a 78 yo male, resident of [place], POD1 from Rt SHELBY PCP: Kevin Wilkerson Payer: [facility] [employer] Reviewed chart, met with patient to introduce self and role. Patient lives independently with spouse, activity limited by pain. Patient has had numerous joint replacements and has returned home after ea surgery to the care of his supportive family with outpatient therapies. 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 No barriers identified at this time to patient's safe discharge home w/family to assist; close outpatient f/u recommended. CM team will plan to follow clinical course closely in case any DC needs or concerns arise. SHAHRZAD Miranda Discharge Planning/Care Management CM Discharge Assessment Start: 06/10/24 09:28 Freq: Status: Active Protocol: Document 06/10/24 09:28 ROBY (Rec: 06/10/24 09:36 ROBY [id number]) Discharge Planning Assessment Assigned Hearse Driver SHAHRZAD Preciado DPOA/Assigned Designee Name Sara Cabezas, spouse Contact Information [phone] cell [phone] home Advance Directives? Yes Advance Directives on File No History Provided By Patient,Medical Record Prior Living Arrangements House Household Members spouse Type of transporation used prior to Relies on Others admit Independent with ADL's Yes: Activity level limited by pain Is patient alert and oriented? Yes Needs Assistance With Meal Prep,Home Chores / Shopping Patient/Family Preference OP PT Therapy Barriers to Discharge No Comment Patient has had 2 ankle surgeries, two knee replacements and one hip replacement already and has returned home with outpatient therapies everytime. Patient expects to do the same upon this discharge, likely today. Discharge Plan Home Transportation Arrangement Family Referrals Initiated None needed
--- NOTE | 2024-06-10 09:40 | PT.IPTN ---
Current Diagnoses Unilateral primary osteoarthritis, right hip (06/09/24) Surgery Performed Operation Date: 06/09/24 07:45 Actual Procedures p Total Hip Arthroplasty/Anterior Approach(Right) - Pop Anderson MD Physical Therapy Treatment Note M2 PT-IP Current Condition Start: 06/09/24 18:12 Freq: NEEDED Status: Discharge Protocol: Document 06/09/24 16:30 AB (Rec: 06/09/24 18:24 AB [id number]) Physical Therapy Current Condition Current Condition Evaluation Date 06/09/24 Treatment Diagnosis s/p R SHELBY anterior; difficulty in walking Onset Date 06/09/24 M3 PT-IP Subjective Start: 06/09/24 18:12 Freq: NEEDED Status: Discharge Protocol: Document 06/10/24 09:40 AB (Rec: 06/10/24 12:52 AB [id number]) Subjective Physical Therapy Visit Type Type Treatment Note Visit Start Time 09:40 Visit Stop Time 10:25 Number of BLOCK SEALER Visits 0 Physical Therapy Visit Comments Patient Comments agreeable to do PT M4 PT-IP Mobility and Gait Start: 06/09/24 18:12 Freq: NEEDED Status: Discharge Protocol: Document 06/10/24 09:40 AB (Rec: 06/10/24 12:52 AB [id number]) PT-Bed Mobility Assessment Supine to Sit Supine to Sit Standby Assistance Sit to Supine Sit to Supine Standby Assistance PT-Transfer Assessment Sit to and From Stand Sit to and from Stand Standby Assistance,Contact Guard Assistance,1 Person Assistance,Use of Upper Extremities Equipment Transfer Assistive Device Gait Belt,Front Wheeled Walker Orthotic/Prosthetic Devices or Brace: No Transfers Transfer Destination Chair Transfer Technique ambulated Transfer Ability Level of Assist Standby Assistance,Contact Guard Assistance,1 Person Assistance,Use of Upper Extremities Comments Mobility Comments checked on pt at 9am but spouse still has not arrived for caregiver training. pt stated that she is on her way. informed pt that PT has to see another pt and will come back to see pt later. pt agreed. checked back on pt and spouse in room. pt's friend also in room and stated that she will be with them today. reviewed hip precautions with pt and pt was able to recall. spouse also aware of pt's hip precautions. pt completed supine to sit SBA log roll. pt completed x 2 sets. educated spouse on use of safety belt and how to assist pt. spouse was able to put safety belt on pt and assisted pt with sit <>stand. also assisted with with LB dressing . pt ambulated in the hallway using FWW with spouse assisting SBA to CGA. stair climbing training: pt clarified that he does not have rails with his 2 steps to enter the house but a pillar at the top step. educated pt on how to do stairs using SPC + NEGATIVE ASSEMBLER. pt completed up/down step requiring max A x 2 and max cues. PT assisted pt on first 2 steps. educated pt on stabilizing RLE and weight shifting to be able to bring LLE up the step and down. pt repeated again requiring mod / max A x 2 and max cues. pt rested on the chair. educated again on RLE steadiness, NEGATIVE ASSEMBLER and cues on techniques. Pt's friend will be staying with them until tomorrow and can assist pt with stairs as well. pt completed up/down step using SPC mod to max A x 2 and max cues with spouse and friend assisting and was able to complete. assisted pt back to his room. pt ambulated from w/c to chair using fWW SBA to CGA. positioned pt on the chair. call light and table placed within reach. Gait Assessment Gait Gait Assistance Required: Standby Assistance,Contact Guard Assist Distance (Feet) 75 Able to Maintain Weight Bearing Status Yes During Gait Assistive Devices Assistive Device Gait Belt,Front Wheeled Walker Orthotic/Prosthetic Devices or Brace: No Gait Deviations General Gait Pattern Antalgic,Decreased Feet Clearance Factors Limiting Gait Function Factors Limiting Gait Function Decreased Activity Tolerance, Decreased Strength,Pain,Poor Balance Stair Climbing Assessment Evaluation Level of Assist On Stairs Moderate Assistance,Maximal Assistance,1 Person Assistance ,2 Person Assistance Devices Stair Climbing Assistive Devices Straight Cane Technique/Endurance Stair Climbing Direction Ascend and Descend Stair Climbing Technique Step to Step Number of Steps Climbed 1 Stair Climbing Set # Repetitions (reps) 4 M5 PT-IP Objective Assessments Start: 06/09/24 18:12 Freq: NEEDED Status: Discharge Protocol: Document 06/09/24 16:30 AB (Rec: 06/09/24 18:24 AB [id number]) Orientation Orientation/Cognition Level of Alertness Alert Orientation Name,Place,Situation Language Function Ability No Deficits Noted Safety Awareness Decreased Safety Awareness Memory Description No Deficits Noted Gross Range of Motion Lower Extremity ROM Assessment Within Functional Limits Strength Lower Extremity Strength Assessment Right Impaired Hip 3-/5 Knee 3+/5 Sensation Assessment Sensation Gross Sensation WNL Muscle Tone Muscle Tone WNL Yes M6 PT-IP Treatment Start: 06/09/24 18:12 Freq: NEEDED Status: Discharge Protocol: Document 06/10/24 09:40 AB (Rec: 06/10/24 12:52 AB [id number]) Physical Therapy Treatment Education Education Provided Precautions,Safety M7 PT-IP Assessment and Plan Start: 06/09/24 18:12 Freq: NEEDED Status: Discharge Protocol: Document 06/10/24 09:40 AB (Rec: 06/10/24 12:52 AB [id number]) PT Summary Assessment and Plan Potential Rehabilitation Potential Fair Summary Impairments Pain,ROM,Strength,Balance, Coordination,Sensation,Tone, Cognition,Bed Mobility, Transfers,Gait,Activity Tolerance Progress Towards Goals Slow Progress due to Activity Tolerance,Slow Progress - Other Assessment Summary pt requiring SBA to CGA with transfers and ambulation using FWW. pt requiring mod/max A x 2 for stair climbing using SPC + NEGATIVE ASSEMBLER. caregiver training conducted and spouse was able to assist pt but needed a 2nd person assist them for stair climbing. pt's friend will be staying with them overnight and will be able to assist them. pt's friend present during PT session and both spouse and friend was able to complete stair climbing with pt. pt plans to go home today. Goals Bed Mobility Goal Independent Transfer Goal Independent,Front Wheeled Walker,Four Wheeled Walker Gait Goal Independent,Front Wheel Walker ,Four Wheel Walker Gait Distance 200 Other Goals up/down 2 steps 1 rail SBA Days to Meet Goals 5 Frequency of Treatment Frequency Of Treatment Twice a Day Treatment Plan Physical Therapy Treatment Plan Bed Mobility Training,Transfer Training,Gait Training, Therapeutic Exercise,Balance Retraining,Post Op Education, Discharge Planning,Hot or Cold Pack,Neuromuscular Re-ed, Coordination Retraining,Manual Therapy Precautions Anterior Hip Precautions No Hip Extension,No Hip External Rotation Weight Bearing Status Weight Bearing Status Weight Bear as Tolerated Allowed Weight Bearing Amount (enter % RLE WBAT or #) (%) Recommendations To Nursing Amount of Assist Needed 1 Person Assist Discharge Recommendations PT Discharge Recommendations Home with Assistance, Outpatient PT Transportation Needs at Discharge Private Vehicle
--- NOTE | 2024-06-10 09:50 | PM.DS.1 ---
History of Present Illness History of Present Illness Date Patient Seen: 06/10/24 Time Patient Seen: 09:50 Chief complaint: Right SHELBY Anterior *OPB* Narrative: Patient states his hip pain is mild. Denies fever or chills. No nausea or vomiting. Patient has his home to help him. His sister who is a nurse is also available to assist him. Discharge Providers Provider Discharge Date: 06/10/24 Primary care physician: Kevin Wilkerson DO Consults: 05/31/24 13:51 Consult to Anesthesiology Routine Comment: Consulting Provider: Anesthesiologist Reason for consultation: Surgeon requested re: Cardiac history 06/09/24 06:00 Consult to Anesthesiology Routine Comment: Consulting Provider: Anesthesiologist Reason for consultation: Regional block for post operative pain control Has provider been notified: No 06/09/24 11:40 Consult to Discharge Planning Routine Comment: Consult to Occupational Therapy Evaluate & Treat Comment: Physician Instructions: Evaluate and treat Consult to Physical Therapy Evaluate & Treat Comment: Physician Instructions: post op SHELBY protocol Discharge provider: James Bhatia PA-C Summary Hospital Course Discharge Diagnosis: Right hip osteoarthritis Hospital Course: [place] [address] Operative Note Patient: Sylvester Cabezas MR#: [id number] : 1945 Acct:[id number] Age/Sex: 78 / M Admit Date: 06/09/24 Provider: Pop Anderson MD Operative Date/Time/Diagnoses Date of procedure: 06/09/24 Pre-op diagnosis: Right hip osteoarthritis Post-op diagnosis: same Procedure & Clinicians Procedure: Right total hip arthroplasty (11142) Same procedure as scheduled: Yes Surgeon: Pop Anderson Potato Chip Sacking Machine Operator: Jaky Chaudhry Anesthesia Type: General and Local Operative Notes Estimated Blood Loss (mL): 450 Procedure in detail: Right Uncemented Direct Anterior Depuy Total Hip Arthroplasty: Implants: [place] Gription size 54 cup? Actis femoral stem size 8 high offset? 36 mm +5 ceramic femoral head? Patient admitted to the hospital for the above-mentioned procedure. Patient consented to the same. Patient underwent right total hip arthroplasty June 09, 2024. Patient back in his room recovering well as in stable condition. Patient will be on Tylenol as needed pain. Patient will go back to his baseline morphine dose. Patient given prescription for oxycodone to be taken for breakthrough pain. Jadon dressing instructions reviewed. Anterior hip precautions. Weightbearing as tolerated. Patient will restart Pradaxa today. Patient will mobilize with physical therapy today and be discharged home today if safe for home environment. Exam Vital Signs (past 8 hours): - 06/10/24 07:00 06/10/24 07:55 Temperature 97.6 F Pulse Rate 90 Respiratory Rate 17 Blood Pressure 105/65 Pulse Oximetry 98 Oxygen Delivery Method Room Air Oxygen Delivery Method Room Air Oxygen Flow Rate 0 Narrative Exam Narrative: 78-year-old male resting comfortably in bed in no apparent distress. Jadon dressing is on and functioning. Jadon dressing is clean, dry and intact. Mild swelling and bruising about the lateral right hip. Neurovascular status is intact bilateral lower extremities. Const General: cooperative and comfortable Nutritional Appearance: obese (BMI 44.2) Orientation: alert Resp Effort & Inspection: normal respiratory effort and able to speak in complete sentences Objective Labs 06/10/24 08:04 Labs: Laboratory Results - last 24 hr 06/09/24 06/10/24 12:27 08:04 Hgb 10.4 L Hct 31.8 L Nasal Screen MRSA (PCR) Not detected [facility] Medical History (Updated 05/31/24 @ 13:25 by Gabbie Wylie RN) Hearing deficit Easy bruisability Osteoarthritis Gout Neuropathy AYO on CPAP Acute cor pulmonale (11/2023) Pulmonary embolism (11/2023) Surgical History (Updated 05/31/24 @ 13:20 by Gabbie Wylie RN) Hx of bilateral cataract extraction History of right ankle joint replacement History of left ankle joint replacement History of vasectomy History of knee replacement History of knee replacement History of hip replacement Family History (Updated 01/24/16 @ 00:00 by Conversion Provider) Father Heart disease Sister Age: 73 Breast cancer Bone cancer Social History household members: spouse Smoking Status: Former smoker alcohol intake: former Discharge Assessment & Plan Assessment and Plan Assessment: Patient progressing as expected Plan of Treatment: Anterior hip precautions, weight-bearing as tolerated Restart Pradaxa today Patient will restart baseline morphine. Patient given a prescription for oxycodone as needed pain. Patient wishes to taper off the chronic pain meds and he should see his chronic bottom painter to assist with this. Jadon dressing instructions reviewed with the patient and his Ice as needed Follow up outpatient orthopedic clinic in 2 weeks as scheduled Patient will mobilize with physical therapy today and be discharged home if safe for home environment Discharge Plan Discharge orders & Medications Discharge Orders: Discharge (Order); Ordered 06/10/24 Ordered By: James Bhatia Prescriptions: New acetaminophen 325 mg Tablet 650 mg PO Q6H Qty: 60 0RF docusate sodium 100 mg Capsule 100 mg PO BID Qty: 10 0RF oxycodone 5 mg tablet 5 mg PO Q6H PRN (Reason: pain) Qty: 30 0RF Rx Instructions: Take 1 tablet every 6 hours as needed for breakthrough pain Continued metformin 1,000 mg Tablet 1,000 mg PO BID lidocaine 5 % Adhesive Patch,Medicated 1 patch TOPICAL DAILY PRN (Reason: Pain) Rx Instructions: leave on most painful area for up to 12 hrs allopurinol 300 mg Tablet 600 mg PO QPM metoprolol succinate 25 mg Tablet Extended Release 24 Hr 25 mg PO DAILY colchicine 0.6 mg Tablet 0.6 mg PO BID morphine 15 mg Tablet 15 mg PO TID duloxetine 30 mg Capsule,Delayed Release(Dr/Ec) 60 mg PO DAILY pregabalin 150 mg Capsule 150 mg PO TID dabigatran etexilate [Pradaxa] 150 mg Capsule 150 mg PO BID lisinopril 40 MG tablet 20 mg PO QPM Discontinued enoxaparin [Lovenox] 80 mg/0.8 mL Syringe 80 mg SUBCUT Q12H Patient Comments: Will start injections 06/07/24 Follow up/Referrals: Pop Anderson MD [Physician] - 06/23/24 11:30 am (Follow up w/ Jaky Chaudhry PA-C, at [facility] office in [place].) Kevin Wilkerson DO [Primary Care Provider] - Diet/Activity/Treatments Diet: Diet as Tolerated Activity: Weightbearing as tolerated to right leg. Anterior hip precautions. Cold/Heat Therapy: Ice to hip as needed for pain. Skin/Wound/Dressing Care Report to your healthcare provider any signs of infection, such as:: chills, fever, night sweats, unusual drainage and unusual redness Dressing: May shower. Keep dressing in place until follow up in office. In 5-7 days, batteries will , at which point you can cut off the battery pack and dispose of it. Keep the dressing on. No bathing or otherwise soaking incision. Call the office if the dressing becomes saturated inside. Visit Report/Discharge Packet Instructions: DI for Hip Replacement, DI for Prescription Opioid Use Stand Alone Forms: Patient Portal/API, Surgery Discharge Discharge Data Primary Care Provider: Kevin Wilkerson Attending Provider: Pop Anderson VTE Deep Vein Thrombosis/Pulmonary Embolism Present on Admission: No
== END 2024-06-10 11:00 | disposition home or self-care (01) ==
LOC: OR 06:18 → AC 06:20 → ICU 11:52
PROVIDERS: Family Provider Internal Medicine; PCP Internal Medicine; Referring Provider Orthopaedic Surgery Adult Reconstructive Orthopaedic Surgery; Visit Provider Orthopaedic Surgery Adult Reconstructive Orthopaedic Surgery
PROC: (CPT 27130; principal; 2024-06-09 07:45)
DX: M16.11 Unilateral primary osteoarthritis, right hip (principal)
CPT/HCPCS: 27130; 73502; 76000; 82962; 85014; 85018; 87797; 97162; 97530; C1776; J0690; J1100; J1170; J1815; J2250; J2270; J2405; J2704; J3010; J3410

== ENCOUNTER → 2024-09-08 07:14 | Outpatient (CLI) | payer MEDICARE, OTHER, SELFPAY ==
[2024-06-09 13:49] VITALS: BMI 44.1
[2024-09-08 09:08] LABS: Hemoglobin A1C% w Est Avg Glu 6.6 % (4.0-6.0)
[2024-09-08 09:56] LABS: Add Manual Diff / Slide Review NO; Basophils Absolute Auto 100 /uL (0-100); Basophils Percent Auto 1.7 % (0-2); Eosinophils Absolute Auto 300 /uL (0-450); Eosinophils Percent Auto 4.8 % (2-4); Hematocrit 40.8 % (41-53); Hemoglobin 13.3 g/dL (13.5-17.5); Lymphocytes Absolute Auto 1500 /uL (1100-4500); Lymphocytes Percent Auto 23.5 % (25-40); Mean Corpuscular HGB Conc 32.6 % (30-36); Mean Corpuscular Hemoglobin 30.5 PG (26-34); Mean Corpuscular Volume 93.8 fL (80-100); Monocytes Absolute Auto 600 /uL (0-900); Monocytes Percent Auto 9.8 % (3-14); Neutrophils Absolute Auto 3800 /uL (1500-7000); Neutrophils Percent Auto 60.2 % (50-75); Platelet Count 188 X10^3/uL (150-400); Red Blood Cell Count 4.35 X10^6/uL (4.5-5.9); Red Cell Distribution Width 18.1 % (11.6-14.8); White Blood Cell Count 6.3 X10^3/uL (4.5-11.0)
[2024-09-08 10:37] LABS: Alanine Aminotransferase 23 IU/L (<50); Albumin 3.8 g/dL (3.5-5.0); Albumin Globulin Ratio 1.3 (1.0-2.8); Alkaline Phosphatase 140 U/L (38-126); Aspartate Aminotransferase 25 IU/L (17-59); BUN Creatinine Ratio 27.8 (6-22); Bilirubin Total 0.4 mg/dL (0.2-1.3); Blood Urea Nitrogen 22 mg/dL (9-20); Calcium 9.6 mg/dL (8.4-10.2); Carbon Dioxide 20 mmol/L (22-32); Chloride 106 mmol/L (98-107); Estimated Glomerular Filt Rate > 60 mL/min (>60); Globulin 2.9 g/dL (1.7-4.1); Glucose 181 mg/dL (80-110); HEMOLYSIS < 15 (0-50); Sodium 134 mmol/L (137-145); Total Protein 6.7 g/dL (6.3-8.2)
[2024-09-08 13:47] LABS: Creatinine Urine Random 79.35 mg/dL
[2024-09-08 13:56] LABS: Microalbumin Urine Random < 0.6 mg/dL (0-1.6)
== END ==
PROVIDERS: Orthopaedic Surgery Adult Reconstructive Orthopaedic Surgery; Family Provider Internal Medicine; PCP Internal Medicine; Referring Provider Internal Medicine; Visit Provider Internal Medicine
DX: M16.11 Unilateral primary osteoarthritis, right hip (principal); D64.9 Anemia, unspecified; E86.0 Dehydration; E11.59 Type 2 diabetes mellitus with other circulatory complications
CPT/HCPCS: 36415; 80053; 82043; 82570; 83036; 85025

== ENCOUNTER 2025-04-12 14:04 | Emergency (ER) | payer MEDICARE, OTHER, SELFPAY ==
[2024-06-09 13:49] VITALS: BMI 44.1
[2025-04-12 14:24] VITALS: BP 151/73; PULSE 87; RESP 16; TEMP 36.6; O2SAT 99; BMI 43.0
[2025-04-12] MEDS: BACITRACIN OINT 0.9 GM PCKT 1 APPLIC TOP (15:01)
[2025-04-12] MEDS: TET,DIPH,PERTUSS(ACELL),VAC/PF 0.5 ML SYRINGE IM (15:01)
--- NOTE | 2025-04-12 15:20 | ED_ITS ---
HPI - Wound/Laceration <Smita Mijares PA-C - Last Filed: 04/12/25 19:55> General Chief Complaint: Wound/Laceration Stated Complaint: L Index Finger Laceration Time Seen by Provider: 04/12/25 14:38 Source: patient Mode of arrival: Ambulatory History of Present Illness HPI narrative: Mr. Cabezas is a very pleasant 79-year-old male with a past medical history of PE on Pradaxa, HTN, T2 DM who presents to the emergency department for a laceration to his left index finger knuckle that occurred prior to arrival when he was grinding steel. Patient was using a steel pourer, power tool, the power tool was turning off/showing down and he accidentally cut the knuckle proximal to his index finger on his left hand. He sustained about a 2 cm linear laceration, there was a fair amount of bleeding but the bleeding has since stopped. He would like stitches because he is very active with his hands and knows that it will continue opening up as he uses his hands. He will need his Tdap updated. No other injuries, no pain with range of motion of the left hand. He is right-hand dominant. Related Data Home Medications Medication Instructions Recorded Confirmed allopurinol 300 mg tablet 600 mg PO QPM 05/31/24 06/09/24 colchicine 0.6 mg tablet 0.6 mg PO BID 05/31/24 06/09/24 dabigatran etexilate 150 mg 150 mg PO BID 05/31/24 06/09/24 capsule (Pradaxa) duloxetine 30 mg capsule,delayed 60 mg PO DAILY 05/31/24 06/09/24 release lidocaine 5 % topical patch 1 patch topical DAILY PRN Pain 05/31/24 06/09/24 lisinopril 40 mg tablet 20 mg PO QPM 05/31/24 06/09/24 metformin 1,000 mg tablet 1,000 mg PO BID 05/31/24 05/31/24 metoprolol succinate 25 mg 25 mg PO DAILY 05/31/24 06/09/24 tablet,extended release 24 hr morphine 15 mg immediate release 15 mg PO TID 05/31/24 06/09/24 tablet pregabalin 150 mg capsule 150 mg PO TID 05/31/24 06/09/24 Previous Rx's Medication Instructions Recorded acetaminophen 325 mg tablet 650 mg (2 x 325 mg) PO Q6H #60 tabs 06/10/24 docusate sodium 100 mg capsule 100 mg PO BID #10 caps 06/10/24 oxycodone 5 mg tablet 5 mg PO Q6H PRN pain #30 tabs 06/10/24 Allergies Allergy/AdvReac Type Severity Reaction Status Date / Time No Known Drug Allergies Allergy Verified 06/09/24 06:43 Review of Systems <Smita Mijares PA-C - Last Filed: 04/12/25 19:55> Review of Systems ROS Unobtainable: All systems reviewed & are unremarkable except as noted in HPI and below Patient History <Smita Mijares PA-C - Last Filed: 04/12/25 19:55> Medical History Hearing deficit Easy bruisability Osteoarthritis Gout Neuropathy AYO on CPAP Acute cor pulmonale (11/2023) Pulmonary embolism (11/2023) Surgical History Hx of bilateral cataract extraction History of right ankle joint replacement History of left ankle joint replacement History of vasectomy History of knee replacement History of knee replacement History of hip replacement Family History Father Heart disease Sister Age: 74 Breast cancer Bone cancer Social History household members: spouse Smoking Status: Never smoker alcohol intake: former Smoking Status: Never smoker alcohol intake frequency: holidays/special occasions only Exam <Smita Mijares PA-C - Last Filed: 04/12/25 19:55> Narrative Exam Narrative: GENERAL: 79 year old patient appears stated age. Well-developed patient, in no acute distress. HEAD: Atraumatic. Normocephalic. CARDIOVASCULAR: Regular rate RESPIRATORY: ?Nonlabored respirations. ?Speaking in clear, full sentences. EXTREMITIES: 2 cm linear laceration overlying the left 2nd MCP. He has full range of motion of the left hand, strong radial pulse, sensation intact distal to the wound and brisk capillary refill distal to the wound. NEURO: AOx3. ?Clear speech. ?Moves all 4 extremities appropriately. SKIN: 2 cm linear, superficial laceration overlying the left 2nd MCP joint, dorsal side. No active bleeding. Deep structures are intact. Initial Vital Signs Initial Vital Signs: Vital Signs Temperature 97.9 F 04/12/25 14:24 Pulse Rate 87 04/12/25 14:24 Respiratory Rate 16 04/12/25 14:24 Blood Pressure 151/73 H 04/12/25 14:24 Pulse Oximetry 99 04/12/25 14:24 Oxygen Delivery Method Room Air 04/12/25 14:24 <Demetri Ivy MD - Last Filed: 04/17/25 10:28> Initial Vital Signs Initial Vital Signs: Vital Signs Temperature 97.9 F 04/12/25 14:24 Pulse Rate 87 04/12/25 14:24 Respiratory Rate 16 04/12/25 14:24 Blood Pressure 151/73 H 04/12/25 14:24 Pulse Oximetry 99 04/12/25 14:24 Oxygen Delivery Method Room Air 04/12/25 14:24 Procedures <SJ Wakefield Last Filed: 04/12/25 19:55> Laceration Repair Laceration 1: Time of procedure: 15:46 Site: hand (dorsal 2nd MCP) Side (If applicable): left Size (cm): 2 Description: linear Depth: simple, single layer Local Anesthetic: lidocaine 1% and with epi Amount of anesthesia used (mL): 2 Pre-repair: wound explored, irrigated extensively, deep structures intact and cleansed with chlorhexadine Skin layer closed with: nylon Skin layer suture size: 4-0 Number of sutures: 3 Technique: simple, interrupted Course <Smita Mijares PA-C - Last Filed: 04/12/25 19:55> Orders Ordered: Discontinued Medications Bacitracin (Bacitracin Oint 0.9 Gm Pckt) 1 applic TOP NOW ONE Stop: 04/12/25 14:51 Last Admin: 04/12/25 15:01 Dose: 1 applic Documented By: JENNIFER Diphtheria/Tetanus/Acell Pertussis (Tet,Diph,Pertuss(Acell),Vac/Pf 0.5 Ml Syringe) 0.5 ml IM .ONCE ONE Stop: 04/12/25 14:51 Last Admin: 04/12/25 15:01 Dose: 0.5 ml Documented By: RB Vital Signs Vital signs: Vital Signs - 8 hr 04/12/25 14:24 04/12/25 16:15 Temperature 97.9 F 98.2 F Pulse Rate 87 78 Respiratory Rate 16 18 Blood Pressure 151/73 H 146/65 H Pulse Oximetry 99 99 Oxygen Delivery Method Room Air Room Air <Demetri Ivy MD - Last Filed: 04/17/25 10:28> Orders Ordered: Discontinued Medications Bacitracin (Bacitracin Oint 0.9 Gm Pckt) 1 applic TOP NOW ONE Stop: 04/12/25 14:51 Last Admin: 04/12/25 15:01 Dose: 1 applic Documented By: RB Diphtheria/Tetanus/Acell Pertussis (Tet,Diph,Pertuss(Acell),Vac/Pf 0.5 Ml Syringe) 0.5 ml IM .ONCE ONE Stop: 04/12/25 14:51 Last Admin: 04/12/25 15:01 Dose: 0.5 ml Documented By: RB Vital Signs Vital signs: Vital Signs - 8 hr 04/12/25 14:24 04/12/25 16:15 Temperature 97.9 F 98.2 F Pulse Rate 87 78 Respiratory Rate 16 18 Blood Pressure 151/73 H 146/65 H Pulse Oximetry 99 99 Oxygen Delivery Method Room Air Room Air MDM - Wound/Laceration <Smita Mijares PA-C - Last Filed: 04/12/25 19:55> Medical Records Attestation: I reviewed the patient's medical records. MDM Narrative Medical decision making narrative: 79-year-old male with a past medical history of PE on Pradaxa, HTN, T2 DM who presents to the emergency department for a laceration to his left index finger knuckle that occurred prior to arrival when he was grinding steel. Differential diagnosis includes but isn't limited to simple laceration, abrasion, foreign body, etc. On exam the patient is in no acute distress, nontoxic appearing, vital signs appropriate. He has a linear, superficial laceration on the left hand overlying the 2nd dorsal MCP. Deep structures intact, full range of motion, neurovascularly intact. We will update Tdap, repair wound using sutures per patient preference. Wound extensively cleansed and repaired using 3 sutures. Bacitracin and nonadherent dressing applied, Deondre wrap for support. Recommended suture removal in 10-14 days, discussed wound care, signs and symptoms to return to the ED. Patient his verbalized understanding of all information agreeable to plan. He is stable for discharge home. Discharge Plan Departure Patient Disposition: Home Clinical Impression: Laceration of hand, left Qualifiers: Encounter type: initial encounter Foreign body presence: without foreign body Qualified Code(s): S61.412A - Laceration without foreign body of left hand, initial encounter Instructions: DI for Laceration Repair Activity Restrictions/Additional Instructions: Today you had a laceration to your left hand. We have placed 3 sutures. They need to be removed in 10-14 days. You may do this in your doctor's office, the [id number], or here if necessary. Please keep the dressing on your wound clean, dry, and intact for the next 24 hours. After this time, you may remove the dressing and gently clean the wound with soap and water, then pat dry. Keep the wound clean and covered. Avoid soaking the wound in any water such as a bath, pool, or the ocean. If you develop any signs of wound infection such as increased redness, pus drainage, streaking redness, or fevers, please return to the ER immediately for evaluation. Once sutures are removed and the wound has healed, apply sunscreen daily to reduce the appearance of scars. We updated your tetanus shot today. Please follow up with your primary care doctor within the next 2-3 days for ER follow-up. (If you do not have a PCP you can call [phone]. ?to schedule an appointment with an [facility] Primary Care Provider) IF YOU DEVELOP ANY NEW OR WORSENING SYMPTOMS, RETURN TO THE ER! Please read the attached instructions, they highlight more specific treatments and interventions for you at home. Thank you for letting me participate in your care, Smita Mijares PA-C Prescriptions: No Action metformin 1,000 mg Tablet 1,000 mg PO BID lidocaine 5 % Adhesive Patch,Medicated 1 patch TOPICAL DAILY PRN (Reason: Pain) Rx Instructions: leave on most painful area for up to 12 hrs allopurinol 300 mg Tablet 600 mg PO QPM metoprolol succinate 25 mg Tablet Extended Release 24 Hr 25 mg PO DAILY colchicine 0.6 mg Tablet 0.6 mg PO BID morphine 15 mg Tablet 15 mg PO TID duloxetine 30 mg Capsule,Delayed Release(Dr/Ec) 60 mg PO DAILY pregabalin 150 mg Capsule 150 mg PO TID dabigatran etexilate [Pradaxa] 150 mg Capsule 150 mg PO BID lisinopril 40 MG tablet 20 mg PO QPM acetaminophen 325 mg Tablet 650 mg PO Q6H Qty: 60 0RF docusate sodium 100 mg Capsule 100 mg PO BID Qty: 10 0RF oxycodone 5 mg tablet 5 mg PO Q6H PRN (Reason: pain) Qty: 30 0RF Rx Instructions: Take 1 tablet every 6 hours as needed for breakthrough pain Referrals: Kevin Wilkerson, [Primary Care Provider] - Stand Alone Forms: Patient Portal/API/Survey ED Sign-out <Demetri Ivy MD - Last Filed: 04/17/25 10:28> Cosign ED Attending Cosignature Attestation: I was immediately available in the department for consultation. ?This documentation has been reviewed and I agree with assessment and plan. Supervised by Demetri Ivy MD
[2025-04-12 16:15] VITALS: BP 146/65; PULSE 78; RESP 18; TEMP 36.8; O2SAT 99
== END 2025-04-12 16:16 | disposition home or self-care (01) ==
PROVIDERS: Emergency Provider Physician Assistant; Family Provider Internal Medicine; PCP Internal Medicine
DX: S61.412A Laceration without foreign body of left hand, initial encounter (principal); W29.8XXA Contact with other powered hand tools and household machinery, initial encounter; Y93.89 Activity, other specified; Z23 Encounter for immunization
CPT/HCPCS: 12001; 90471; 99283; 99284; 90715

== ENCOUNTER → 2025-05-21 07:27 | Outpatient (CLI) | payer MEDICARE, OTHER, SELFPAY ==
[2024-06-09 13:49] VITALS: BMI 44.1
[2025-05-21 08:48] LABS: Hemoglobin A1C% w Est Avg Glu 9.3 % (4.0-6.0)
== END ==
PROVIDERS: Family Provider Internal Medicine; PCP Internal Medicine; Referring Provider Internal Medicine; Visit Provider Internal Medicine
DX: E11.59 Type 2 diabetes mellitus with other circulatory complications (principal)
CPT/HCPCS: 36415; 83036

== ENCOUNTER → 2025-08-23 13:17 | Outpatient (CLI) | payer MEDICARE, OTHER, SELFPAY ==
[2024-06-09 13:49] VITALS: BMI 44.1
[2025-08-23 14:10] LABS: Hemoglobin A1C% w Est Avg Glu 12.4 % (4.0-6.0)
== END ==
LOC: LAB 13:18
PROVIDERS: Family Provider Internal Medicine; PCP Internal Medicine; Referring Provider Internal Medicine; Visit Provider Internal Medicine
DX: E11.69 Type 2 diabetes mellitus with other specified complication (principal)
CPT/HCPCS: 36415; 83036

== ENCOUNTER 2025-08-23 15:03 | Emergency (ER) | payer MEDICARE, OTHER, SELFPAY ==
[2024-06-09 13:49] VITALS: BMI 44.1
[2025-08-23] VITALS (10 sets, daily range): BP systolic 103–158; BP diastolic 57–97; PULSE 84–102; RESP 15–21; TEMP 37.2; O2SAT 94–98; BMI 42.5
[2025-08-23 15:45] LABS: Alanine Aminotransferase 26 IU/L (<50); Albumin 4.3 g/dL (3.5-5.0); Albumin Globulin Ratio 1.3 (1.0-2.8); Alkaline Phosphatase 135 U/L (38-126); Blood Urea Nitrogen 26 mg/dL (9-20); Calcium 9.8 mg/dL (8.4-10.2); Carbon Dioxide 22 mmol/L (22-32); Chloride 102 mmol/L (98-107); Estimated Glomerular Filt Rate > 60 mL/min (>60); Globulin 3.2 g/dL (1.7-4.1); Glucose 308 mg/dL (70-99); HEMOLYSIS 15 (0-50); Lipase 185 U/L (23-300); Potassium 4.5 mmol/L (3.4-5.1); Sodium 134 mmol/L (137-145); Total Protein 7.5 g/dL (6.3-8.2)
[2025-08-23 15:48] LABS: Add Manual Diff / Slide Review NO; Hematocrit 41.5 % (41-53); Hemoglobin 14.2 g/dL (13.5-17.5); Lymphocytes Absolute Auto 1600 /uL (1100-4500); Mean Corpuscular HGB Conc 34.1 % (30-36); Mean Corpuscular Hemoglobin 32.6 PG (26-34); Mean Corpuscular Volume 95.6 fL (80-100); Platelet Count 194 X10^3/uL (150-400)
--- NOTE | 2025-08-23 17:56 | ED.GENADULT ---
HPI - General Adult <Demetri Ivy MD - Last Filed: 08/28/25 08:07> General Chief complaint: Diabetic Problem Stated complaint: high blood sugar, pc ref Time Seen by Provider: 08/23/25 16:16 Source: patient Mode of arrival: Family Vehicle History of Present Illness HPI narrative: Patient here with . Patient here for hyperglycemia. He has not taken are measured his blood glucose for over 6 months but decided did take it yesterday and it was in the 300s. He has been on metformin 1000 mg twice a day for over 2 or 3 years. He sees primary care provider at [facility]. Has appointment next week with his provider to review his diabetes medications. He has never been on insulin before. He says his primary care has encouraged him to start different diabetes medications and he is willing to start that. He has had little more urinary frequency but no dysuria. He did have blood work done outpatient for his primary care to be done today to review for next week. Hemoglobin A1c today 12.4 Related Data Home Medications ?Medication ?Instructions ?Recorded ?Confirmed allopurinol 300 mg tablet 600 mg PO QPM 05/31/24 06/09/24 colchicine 0.6 mg tablet 0.6 mg PO BID 05/31/24 06/09/24 dabigatran etexilate 150 mg 150 mg PO BID 05/31/24 06/09/24 capsule (Pradaxa) duloxetine 30 mg capsule,delayed 60 mg PO DAILY 05/31/24 06/09/24 release lidocaine 5 % topical patch 1 patch topical DAILY PRN Pain 05/31/24 06/09/24 lisinopril 40 mg tablet 20 mg PO QPM 05/31/24 06/09/24 metformin 1,000 mg tablet 1,000 mg PO BID 05/31/24 05/31/24 metoprolol succinate 25 mg 25 mg PO DAILY 05/31/24 06/09/24 tablet,extended release 24 hr morphine 15 mg immediate release 15 mg PO TID 05/31/24 06/09/24 tablet pregabalin 150 mg capsule 150 mg PO TID 05/31/24 06/09/24 Previous Rx's ?Medication ?Instructions ?Recorded acetaminophen 325 mg tablet 650 mg (2 x 325 mg) PO Q6H #60 tabs 06/10/24 docusate sodium 100 mg capsule 100 mg PO BID #10 caps 06/10/24 oxycodone 5 mg tablet 5 mg PO Q6H PRN pain #30 tabs 06/10/24 insulin glargine 100 unit/mL (3 15 unit (0.15 mL) SUBCUT BID #15 mL 08/23/25 mL) subcutaneous pen (Lantus Solostar U-100 Insulin) Allergies Allergy/AdvReac Type Severity Reaction Status Date / Time No Known Drug Allergies Allergy Verified 06/09/24 06:43 Review of Systems <Demetri Ivy MD - Last Filed: 08/28/25 08:07> Review of Systems Narrative: GENERAL: Negative chills, fatigue, malaise, fever, sweats. HEENT: Negative sinus pain, ear pain, sore throat RESPIRATORY: Negative dyspnea, cough CARDIOVASCULAR: Negative chest pain, palpitations GASTROINTESTINAL: Negative vomiting, nausea, abdominal pain : Negative dysuria, positive frequency, negative hematuria MUSCULOSKELETAL: Negative muscle or bony pain SKIN: Negative rash, skin lesions NEUROLOGIC: Negative weakness, numbness ROS Unobtainable: All systems reviewed & are unremarkable except as noted in HPI and below Patient History <Demetri Ivy MD - Last Filed: 08/28/25 08:07> Medical History Hearing deficit Easy bruisability Osteoarthritis Gout Neuropathy AYO on CPAP Acute cor pulmonale (11/2023) Pulmonary embolism (11/2023) Surgical History Hx of bilateral cataract extraction History of right ankle joint replacement History of left ankle joint replacement History of vasectomy History of knee replacement History of knee replacement History of hip replacement Family History Father Heart disease Sister Age: 74 Breast cancer Bone cancer Social History household members: spouse alcohol intake: former alcohol intake frequency: holidays/special occasions only Exam <Demetri Ivy MD - Last Filed: 08/28/25 08:07> Narrative Exam Narrative: GENERAL: in no distress, not toxic not dyspneic HEAD: Normocephalic. EYES: Pupils equal round ENT: Mucous membranes moist. NECK: Trachea midline. CARDIOVASCULAR: Regular rate and rhythm RESPIRATORY: Clear to auscultation. Breath sounds equal bilaterally. No wheezes, rales, or rhonchi. GASTROINTESTINAL: Abdomen soft, non-tender EXTREMITIES: No gross deformities. BACK: No flank tenderness. NEURO: AOx4. Clear speech SKIN: Warm and dry PSYCH: Not anxious, is cooperative Initial Vital Signs Initial Vital Signs: Vital Signs Temperature 99 F 08/23/25 15:09 Pulse Rate 102 H 08/23/25 15:09 Respiratory Rate 16 08/23/25 15:09 Blood Pressure 157/97 H 08/23/25 15:09 Pulse Oximetry 98 08/23/25 15:09 Oxygen Delivery Method Room Air 08/23/25 15:09 <Chris Son DO - Last Filed: 08/23/25 22:25> Initial Vital Signs Initial Vital Signs: Vital Signs Temperature 99 F 08/23/25 15:09 Pulse Rate 102 H 08/23/25 15:09 Respiratory Rate 16 08/23/25 15:09 Blood Pressure 157/97 H 08/23/25 15:09 Pulse Oximetry 98 08/23/25 15:09 Oxygen Delivery Method Room Air 08/23/25 15:09 Course <Demetri Ivy MD - Last Filed: 08/28/25 08:07> Orders Ordered: Discontinued Medications Sodium Chloride (Normal Saline 0.9%) 1,000 mls @ 1,000 mls/hr IV BOLUS ONE Stop: 08/23/25 19:04 Last Infusion: 08/23/25 19:57 Dose: Infused Documented By: Admin: 08/23/25 18:20 Dose: 1,000 mls/hr Documented By: MADDI Sodium Chloride (Normal Saline 0.9%) 500 mls @ 1,000 mls/hr IV BOLUS ONE Stop: 08/23/25 20:33 Last Admin: 08/23/25 20:08 Dose: Not Given Documented By: SHANNON Sodium Chloride (Normal Saline 0.9%) 1,000 mls @ 1,000 mls/hr IV BOLUS ONE Stop: 08/23/25 21:05 Last Infusion: 08/23/25 21:15 Dose: Infused Documented By: Admin: 08/23/25 20:08 Dose: 1,000 mls/hr Documented By: SHANNON Sodium Chloride (Normal Saline 0.9%) 500 mls @ 1,000 mls/hr IV BOLUS PRN PRN Reason: Fluid replacement Insulin Glargine (Insulin Glargine 100 Unit/Ml 3ml Pen) 30 unit SUBCUT NOW ONE Stop: 08/23/25 18:25 Last Admin: 08/23/25 18:59 Dose: 30 unit Documented By: SHANNON Co-signed By: KIMBERLEE Insulin Human Lispro (Insulin Lispro 100 Unit/Ml 3ml Vial) 15 unit SUBCUT AC CARLY Insulin Human Regular (Insulin Regular 100 Unit/Ml 3 Ml Vial) 2 unit IV NOW ONE Stop: 08/23/25 21:08 Last Admin: 08/23/25 21:21 Dose: 2 unit Documented By: RLLiza Co-signed By: MARTIR Ondansetron HCl (Ondansetron 4 Mg/2 Ml Inj) 4 mg IV NOW PRN PRN Reason: Nausea And Vomiting Ondansetron HCl (Ondansetron 4 Mg Odt) 4 mg PO NOW PRN PRN Reason: Nausea And Vomiting Vital Signs Vital signs: Vital Signs - 8 hr 08/23/25 15:09 08/23/25 17:03 08/23/25 17:30 Temperature 99 F Pulse Rate 102 H 92 H Respiratory Rate 16 21 Blood Pressure 157/97 H 103/69 Pulse Oximetry 98 96 Oxygen Delivery Method Room Air 08/23/25 17:30 08/23/25 18:00 08/23/25 18:30 Temperature Pulse Rate 90 94 H Respiratory Rate 15 18 Blood Pressure 103/57 L Pulse Oximetry 97 98 Oxygen Delivery Method 08/23/25 18:30 08/23/25 19:00 08/23/25 19:00 Temperature Pulse Rate 86 90 Respiratory Rate 19 Blood Pressure 158/79 H Pulse Oximetry 96 96 Oxygen Delivery Method 08/23/25 19:30 08/23/25 19:31 08/23/25 19:31 Temperature Pulse Rate 84 86 Respiratory Rate 15 18 Blood Pressure 130/63 Pulse Oximetry 97 96 Oxygen Delivery Method 08/23/25 20:00 08/23/25 20:00 Temperature Pulse Rate 84 Respiratory Rate 16 Blood Pressure 121/69 Pulse Oximetry 96 Oxygen Delivery Method Room Air <Chris Son, - Last Filed: 08/23/25 22:25> Orders Ordered: Discontinued Medications Sodium Chloride (Normal Saline 0.9%) 1,000 mls @ 1,000 mls/hr IV BOLUS ONE Stop: 08/23/25 19:04 Last Infusion: 08/23/25 19:57 Dose: Infused Documented By: Admin: 08/23/25 18:20 Dose: 1,000 mls/hr Documented By: MADDI Sodium Chloride (Normal Saline 0.9%) 500 mls @ 1,000 mls/hr IV BOLUS ONE Stop: 08/23/25 20:33 Last Admin: 08/23/25 20:08 Dose: Not Given Documented By: SHANNON Sodium Chloride (Normal Saline 0.9%) 1,000 mls @ 1,000 mls/hr IV BOLUS ONE Stop: 08/23/25 21:05 Last Infusion: 08/23/25 21:15 Dose: Infused Documented By: Admin: 08/23/25 20:08 Dose: 1,000 mls/hr Documented By: SHANNON Sodium Chloride (Normal Saline 0.9%) 500 mls @ 1,000 mls/hr IV BOLUS PRN PRN Reason: Fluid replacement Insulin Glargine (Insulin Glargine 100 Unit/Ml 3ml Pen) 30 unit SUBCUT NOW ONE Stop: 08/23/25 18:25 Last Admin: 08/23/25 18:59 Dose: 30 unit Documented By: SHANNON Co-signed By: KIMBERLEE Insulin Human Lispro (Insulin Lispro 100 Unit/Ml 3ml Vial) 15 unit SUBCUT AC CARLY Insulin Human Regular (Insulin Regular 100 Unit/Ml 3 Ml Vial) 2 unit IV NOW ONE Stop: 08/23/25 21:08 Last Admin: 08/23/25 21:21 Dose: 2 unit Documented By: SHANNON Co-signed By: MARTIR Ondansetron HCl (Ondansetron 4 Mg/2 Ml Inj) 4 mg IV NOW PRN PRN Reason: Nausea And Vomiting Ondansetron HCl (Ondansetron 4 Mg Odt) 4 mg PO NOW PRN PRN Reason: Nausea And Vomiting Vital Signs Vital signs: Vital Signs - 8 hr 08/23/25 15:09 08/23/25 17:03 08/23/25 17:30 Temperature 99 F Pulse Rate 102 H 92 H Respiratory Rate 16 21 Blood Pressure 157/97 H 103/69 Pulse Oximetry 98 96 Oxygen Delivery Method Room Air 08/23/25 17:30 08/23/25 18:00 08/23/25 18:30 Temperature Pulse Rate 90 94 H Respiratory Rate 15 18 Blood Pressure 103/57 L Pulse Oximetry 97 98 Oxygen Delivery Method 08/23/25 18:30 08/23/25 19:00 08/23/25 19:00 Temperature Pulse Rate 86 90 Respiratory Rate 19 Blood Pressure 158/79 H Pulse Oximetry 96 96 Oxygen Delivery Method 08/23/25 19:30 08/23/25 19:31 08/23/25 19:31 Temperature Pulse Rate 84 86 Respiratory Rate 15 18 Blood Pressure 130/63 Pulse Oximetry 97 96 Oxygen Delivery Method 08/23/25 20:00 08/23/25 20:00 Temperature Pulse Rate 84 Respiratory Rate 16 Blood Pressure 121/69 Pulse Oximetry 96 Oxygen Delivery Method Room Air Medical Decision Making <Demetri Ivy MD - Last Filed: 08/28/25 08:07> Lab Data 08/23/25 15:20 08/23/25 15:20 Labs: Lab Results 08/23/25 08/23/25 08/23/25 Range/Units 15:05 15:20 15:34 WBC 8.3 (4.5-11.0) X10^3/uL RBC 4.34 L (4.5-5.9) X10^6/uL Hgb 14.2 (13.5-17.5) g/dL Hct 41.5 (41-53) % MCV 95.6 (80-100) fL MCH 32.6 (26-34) PG MCHC 34.1 (30-36) % RDW 14.0 (11.6-14.8) % Plt Count 194 (150-400) X10^3/uL Neut % (Auto) 69.8 (50-75) % Lymph % (Auto) 18.8 L (25-40) % Turner % (Auto) 8.3 (3-14) % Eos % (Auto) 2.0 (2-4) % Baso % (Auto) 1.1 (0-2) % Neut # (Auto) 5800 (6212-2473) /uL Lymph # (Auto) 1600 (3381-0027) /uL Turner # (Auto) 700 (0-900) /uL Eos # (Auto) 200 (0-450) /uL Baso # (Auto) 100 (0-100) /uL Sodium 134 L (137-145) mmol/L Potassium 4.5 (3.4-5.1) mmol/L Chloride 102 (98-107) mmol/L Carbon Dioxide 22 (22-32) mmol/L BUN 26 H (9-20) mg/dL Creatinine 0.80 (0.66-1.25) mg/dL Estimated GFR > 60 (>60) mL/min BUN/Creatinine Ratio 32.5 H (6-22) Glucose 308 H (70-99) mg/dL POC Whole Bld Glucose 330 H (70-99) mg/dL Calcium 9.8 (8.4-10.2) mg/dL Total Bilirubin 0.4 (0.2-1.3) mg/dL AST 26 (17-59) IU/L ALT 26 (<50) IU/L Alkaline Phosphatase 135 H (38-126) U/L Total Protein 7.5 (6.3-8.2) g/dL Albumin 4.3 (3.5-5.0) g/dL Globulin 3.2 (1.7-4.1) g/dL Albumin/Globulin Ratio 1.3 (1.0-2.8) Lipase 185 (23-300) U/L Urine RBC None seen (0-5/HPF) Urine WBC None seen (0-5/HPF) Ur Squamous Epith Cells 0-1 /hpf (0-5/HPF) Urine Bacteria None seen (None) Vol Urine Centrifuged 10ml (spun) Ketones 0.33 H (<0.27) mmol/L 08/23/25 08/23/25 08/23/25 Range/Units 20:02 20:55 22:01 WBC (4.5-11.0) X10^3/uL RBC (4.5-5.9) X10^6/uL Hgb (13.5-17.5) g/dL Hct (41-53) % MCV (80-100) fL MCH (26-34) PG MCHC (30-36) % RDW (11.6-14.8) % Plt Count (150-400) X10^3/uL Neut % (Auto) (50-75) % Lymph % (Auto) (25-40) % Turner % (Auto) (3-14) % Eos % (Auto) (2-4) % Baso % (Auto) (0-2) % Neut # (Auto) (9200-8027) /uL Lymph # (Auto) (2963-9099) /uL Turner # (Auto) (0-900) /uL Eos # (Auto) (0-450) /uL Baso # (Auto) (0-100) /uL Sodium (137-145) mmol/L Potassium (3.4-5.1) mmol/L Chloride (98-107) mmol/L Carbon Dioxide (22-32) mmol/L BUN (9-20) mg/dL Creatinine (0.66-1.25) mg/dL Estimated GFR (>60) mL/min BUN/Creatinine Ratio (6-22) Glucose (70-99) mg/dL POC Whole Bld Glucose 274 H 253 H 268 H (70-99) mg/dL Calcium (8.4-10.2) mg/dL Total Bilirubin (0.2-1.3) mg/dL AST (17-59) IU/L ALT (<50) IU/L Alkaline Phosphatase (38-126) U/L Total Protein (6.3-8.2) g/dL Albumin (3.5-5.0) g/dL Globulin (1.7-4.1) g/dL Albumin/Globulin Ratio (1.0-2.8) Lipase (23-300) U/L Urine RBC (0-5/HPF) Urine WBC (0-5/HPF) Ur Squamous Epith Cells (0-5/HPF) Urine Bacteria (None) Vol Urine Centrifuged Ketones (<0.27) mmol/L Point of Care Testing Glucose POC 268 Urine Dip Bedside Urine Glucose 100 mg/dl Bedside Urine Bilirubin - Negative Bedside Urine Ketone - Negative Urine Specific [place] 1.010 Bedside Urine Occult Blood - Negative Bedside Urine pH 6.0 Bedside Urine Protein - Negative Bedside Urine Urobilinogen - Negative Bedside Urine Nitrite - Negative Bedside Urine Leukocytes - Negative Esterase Point of care testing: Point of Care Testing Glucose POC 268 Urine Dip Bedside Urine Glucose 100 mg/dl Bedside Urine Bilirubin - Negative Bedside Urine Ketone - Negative Urine Specific [place] 1.010 Bedside Urine Occult Blood - Negative Bedside Urine pH 6.0 Bedside Urine Protein - Negative Bedside Urine Urobilinogen - Negative Bedside Urine Nitrite - Negative Bedside Urine Leukocytes - Negative Esterase MDM Narrative Medical decision making narrative: Patient here with . Patient here for hyperglycemia. He has not taken are measured his blood glucose for over 6 months but decided did take it yesterday and it was in the 300s. He has been on metformin 1000 mg twice a day for over 2 or 3 years. He sees primary care provider at [facility]. Has appointment next week with his provider to review his diabetes medications. He has never been on insulin before. He says his primary care has encouraged him to start different diabetes medications and he is willing to start that. He has had little more urinary frequency but no dysuria. He did have blood work done outpatient for his primary care to be done today to review for next week. Hemoglobin A1c today 12.4 MDM After history and exam, CBC CMP urinalysis normal saline ketone Differential considered: Includes but not limited to hypoglycemia DKA Medical records reviewed: Walk-in clinic nose prior to arrival Lab Test results independently reviewed as above. Pertinent findings: WBC 8.3 hemoglobin 14.2 hematocrit 41.5 sodium 134 potassium 4.5 BUN 26 creatinine 0.8 glucose 330 hemoglobin A1c 12.4 Consultations: 6:10 p.m.. Spoke with hospitalist Dr. Agustin, reviewed laboratory studies and hemoglobin A1c, recommends giving dose of lispro here 15 units, then start Lantus 30 units daily. Re-evaluations: 6:47 p.m.. Updated patient results and my discussion for starting insulin. He agrees with this plan. Return precautions reviewed. He desires discharge home. Discussion: Appropriate for discharge home. Exam is reassuring. Patient has appointment with his primary care next week regarding his diabetic care. Patient is not in DKA. Diagnosis: Hyperglycemia <Chris Son, DO - Last Filed: 08/23/25 22:25> Lab Data Labs: Lab Results 08/23/25 08/23/25 08/23/25 Range/Units 15:05 15:20 15:34 WBC 8.3 (4.5-11.0) X10^3/uL RBC 4.34 L (4.5-5.9) X10^6/uL Hgb 14.2 (13.5-17.5) g/dL Hct 41.5 (41-53) % MCV 95.6 (80-100) fL MCH 32.6 (26-34) PG MCHC 34.1 (30-36) % RDW 14.0 (11.6-14.8) % Plt Count 194 (150-400) X10^3/uL Neut % (Auto) 69.8 (50-75) % Lymph % (Auto) 18.8 L (25-40) % Turner % (Auto) 8.3 (3-14) % Eos % (Auto) 2.0 (2-4) % Baso % (Auto) 1.1 (0-2) % Neut # (Auto) 5800 (0295-7049) /uL Lymph # (Auto) 1600 (4874-4737) /uL Turner # (Auto) 700 (0-900) /uL Eos # (Auto) 200 (0-450) /uL Baso # (Auto) 100 (0-100) /uL Sodium 134 L (137-145) mmol/L Potassium 4.5 (3.4-5.1) mmol/L Chloride 102 (98-107) mmol/L Carbon Dioxide 22 (22-32) mmol/L BUN 26 H (9-20) mg/dL Creatinine 0.80 (0.66-1.25) mg/dL Estimated GFR > 60 (>60) mL/min BUN/Creatinine Ratio 32.5 H (6-22) Glucose 308 H (70-99) mg/dL POC Whole Bld Glucose 330 H (70-99) mg/dL Calcium 9.8 (8.4-10.2) mg/dL Total Bilirubin 0.4 (0.2-1.3) mg/dL AST 26 (17-59) IU/L ALT 26 (<50) IU/L Alkaline Phosphatase 135 H (38-126) U/L Total Protein 7.5 (6.3-8.2) g/dL Albumin 4.3 (3.5-5.0) g/dL Globulin 3.2 (1.7-4.1) g/dL Albumin/Globulin Ratio 1.3 (1.0-2.8) Lipase 185 (23-300) U/L Urine RBC None seen (0-5/HPF) Urine WBC None seen (0-5/HPF) Ur Squamous Epith Cells 0-1 /hpf (0-5/HPF) Urine Bacteria None seen (None) Vol Urine Centrifuged 10ml (spun) Ketones 0.33 H (<0.27) mmol/L 08/23/25 08/23/25 08/23/25 Range/Units 20:02 20:55 22:01 WBC (4.5-11.0) X10^3/uL RBC (4.5-5.9) X10^6/uL Hgb (13.5-17.5) g/dL Hct (41-53) % MCV (80-100) fL MCH (26-34) PG MCHC (30-36) % RDW (11.6-14.8) % Plt Count (150-400) X10^3/uL Neut % (Auto) (50-75) % Lymph % (Auto) (25-40) % Turner % (Auto) (3-14) % Eos % (Auto) (2-4) % Baso % (Auto) (0-2) % Neut # (Auto) (2346-4323) /uL Lymph # (Auto) (5969-6093) /uL Turner # (Auto) (0-900) /uL Eos # (Auto) (0-450) /uL Baso # (Auto) (0-100) /uL Sodium (137-145) mmol/L Potassium (3.4-5.1) mmol/L Chloride (98-107) mmol/L Carbon Dioxide (22-32) mmol/L BUN (9-20) mg/dL Creatinine (0.66-1.25) mg/dL Estimated GFR (>60) mL/min BUN/Creatinine Ratio (6-22) Glucose (70-99) mg/dL POC Whole Bld Glucose 274 H 253 H 268 H (70-99) mg/dL Calcium (8.4-10.2) mg/dL Total Bilirubin (0.2-1.3) mg/dL AST (17-59) IU/L ALT (<50) IU/L Alkaline Phosphatase (38-126) U/L Total Protein (6.3-8.2) g/dL Albumin (3.5-5.0) g/dL Globulin (1.7-4.1) g/dL Albumin/Globulin Ratio (1.0-2.8) Lipase (23-300) U/L Urine RBC (0-5/HPF) Urine WBC (0-5/HPF) Ur Squamous Epith Cells (0-5/HPF) Urine Bacteria (None) Vol Urine Centrifuged Ketones (<0.27) mmol/L Point of Care Testing Glucose POC 268 Urine Dip Bedside Urine Glucose 100 mg/dl Bedside Urine Bilirubin - Negative Bedside Urine Ketone - Negative Urine Specific [place] 1.010 Bedside Urine Occult Blood - Negative Bedside Urine pH 6.0 Bedside Urine Protein - Negative Bedside Urine Urobilinogen - Negative Bedside Urine Nitrite - Negative Bedside Urine Leukocytes - Negative Esterase Point of care testing: Point of Care Testing Glucose POC 268 Urine Dip Bedside Urine Glucose 100 mg/dl Bedside Urine Bilirubin - Negative Bedside Urine Ketone - Negative Urine Specific [place] 1.010 Bedside Urine Occult Blood - Negative Bedside Urine pH 6.0 Bedside Urine Protein - Negative Bedside Urine Urobilinogen - Negative Bedside Urine Nitrite - Negative Bedside Urine Leukocytes - Negative Esterase MDM Narrative Medical decision making narrative: Patient here with . Patient here for hyperglycemia. He has not taken are measured his blood glucose for over 6 months but decided did take it yesterday and it was in the 300s. He has been on metformin 1000 mg twice a day for over 2 or 3 years. He sees primary care provider at [facility]. Has appointment next week with his provider to review his diabetes medications. He has never been on insulin before. He says his primary care has encouraged him to start different diabetes medications and he is willing to start that. He has had little more urinary frequency but no dysuria. He did have blood work done outpatient for his primary care to be done today to review for next week. Hemoglobin A1c today 12.4 MDM After history and exam, CBC CMP urinalysis normal saline ketone Differential considered: Includes but not limited to hypoglycemia DKA Medical records reviewed: Walk-in clinic nose prior to arrival Lab Test results independently reviewed as above. Pertinent findings: WBC 8.3 hemoglobin 14.2 hematocrit 41.5 sodium 134 potassium 4.5 BUN 26 creatinine 0.8 glucose 330 hemoglobin A1c 12.4 Consultations: 6:10 p.m.. Spoke with hospitalist Dr. Agustin, reviewed laboratory studies and hemoglobin A1c, recommends giving dose of lispro here 15 units, then start Lantus 30 units daily. Re-evaluations: 6:47 p.m.. Updated patient results and my discussion for starting insulin. He agrees with this plan. Return precautions reviewed. He desires discharge home. Discussion: Appropriate for discharge home. Exam is reassuring. Patient has appointment with his primary care next week regarding his diabetic care. Patient is not in DKA. Diagnosis: Hyperglycemia Patient signed out to me at shift change pending final disposition by Dr. Ivy patient was given fluids 1 L bolus x2, regular insulin 2 units and on recheck blood sugar 253 and 268 with Ketones 0.33. Patient is nontoxic nonseptic afebrile here not having any nausea vomiting asymptomatic feels fine. Patient was offered admission would rather go home at this point he has follow up appointment with PCP on September 03 Discharge Plan Departure Patient Disposition: Home Clinical Impression: Hyperglycemia Instructions: DI for Hyperglycemia -- Adult Activity Restrictions/Additional Instructions: Please see your doctor next week as scheduled to reviewed your diabetes medications. Lantus medication prescription has been sent to your pharmacy to continue tomorrow. Return if worse if any questions or concerns. Continue your metformin. Please do check your glucose/sugar levels with each meal. Prescriptions: New insulin glargine [Lantus Solostar U-100 Insulin] 100 unit/mL (3 mL) insulin pen 15 unit SUBCUT BID Qty: 15 4RF No Action metformin 1,000 mg Tablet 1,000 mg PO BID lidocaine 5 % Adhesive Patch,Medicated 1 patch TOPICAL DAILY PRN (Reason: Pain) Rx Instructions: leave on most painful area for up to 12 hrs allopurinol 300 mg Tablet 600 mg PO QPM metoprolol succinate 25 mg Tablet Extended Release 24 Hr 25 mg PO DAILY colchicine 0.6 mg Tablet 0.6 mg PO BID morphine 15 mg Tablet 15 mg PO TID duloxetine 30 mg Capsule,Delayed Release(Dr/Ec) 60 mg PO DAILY pregabalin 150 mg Capsule 150 mg PO TID dabigatran etexilate [Pradaxa] 150 mg Capsule 150 mg PO BID lisinopril 40 MG tablet 20 mg PO QPM acetaminophen 325 mg Tablet 650 mg PO Q6H Qty: 60 0RF docusate sodium 100 mg Capsule 100 mg PO BID Qty: 10 0RF oxycodone 5 mg tablet 5 mg PO Q6H PRN (Reason: pain) Qty: 30 0RF Rx Instructions: Take 1 tablet every 6 hours as needed for breakthrough pain Referrals: Kevin Wilkerson DO [Primary Care Provider, Internal Medicine] Stand Alone Forms: Patient Portal/API
[2025-08-23] MEDS: SODIUM CHLORIDE 0.9% 1,000 ML 1000 ML IV ×2 (18:20→20:08)
[2025-08-23] MEDS: INSULIN GLARGINE 100 UNIT/ML 3ML PEN 30 UNIT SUBCUT (18:59)
[2025-08-23 19:17] LABS: Ketones (Beta-Hydroxybutyrate) 0.33 mmol/L (<0.27)
[2025-08-23] MEDS: INSULIN REGULAR 100 UNIT/ML 3 ML VIAL IV (21:21)
== END 2025-08-23 22:45 | disposition home or self-care (01) ==
PROVIDERS: Emergency Medicine; Emergency Provider Family Medicine; Family Provider Internal Medicine; PCP Internal Medicine
DX: E11.65 Type 2 diabetes mellitus with hyperglycemia (principal)
CPT/HCPCS: 36415; 80053; 81003; 81015; 82009; 82948; 82962; 83036; 83690; 85025; 87086; 96361; 96372; 96374; 99284

== ENCOUNTER → 2025-09-14 11:55 | Outpatient (CLI) | payer MEDICARE, OTHER, SELFPAY ==
[2024-06-09 13:49] VITALS: BMI 44.1
== END ==
PROVIDERS: Family Provider Internal Medicine; PCP Internal Medicine; Referring Provider Internal Medicine; Visit Provider Internal Medicine
DX: E11.69 Type 2 diabetes mellitus with other specified complication (principal)
CPT/HCPCS: 82043; 82570

== ENCOUNTER → 2025-11-26 10:24 | Outpatient (CLI) | payer MEDICARE, OTHER, SELFPAY ==
[2024-06-09 13:49] VITALS: BMI 44.1
[2025-11-26 11:52] LABS: Hemoglobin A1C% w Est Avg Glu 6.4 % (4.0-6.0)
== END ==
PROVIDERS: Family Provider Internal Medicine; PCP Internal Medicine; Referring Provider Internal Medicine; Visit Provider Internal Medicine
DX: E11.69 Type 2 diabetes mellitus with other specified complication (principal)
CPT/HCPCS: 36415; 83036